=== PATIENT | male | born 1950 | race Caucasian/White ===

== ENCOUNTER 2020-01-29 12:39 | Emergency (ER) | payer OTHER, SELFPAY ==
[2020-01-29 12:48] VITALS: BP 161/86; PULSE 78; RESP 18; O2SAT 96; BMI 30.5
--- NOTE | 2020-01-29 12:51 | DI.RAD.S_ITS ---
PROCEDURE: XR RIBS RT MIN 3V W CXR 1V INDICATIONS: fall TECHNIQUE: Two views of the right ribs were acquired, along with a single view chest. COMPARISON: None. FINDINGS: Surgical changes and devices: None. Bones and chest wall: There is a minimally displaced 4th posterolateral right rib fracture. No other visible fractures. There are deformities of remote left rib fractures. No suspicious bony lesions. Overlying soft tissues appear unremarkable. Lungs and pleura: No definite pneumothorax. There is pleural tethering or trace effusion at the right lung base. Lungs demonstrate horizontal linear changes at the right lung base. Mediastinum: Mediastinal contours appear normal. Heart size is normal. IMPRESSION: 1. Mildly displaced right posterolateral 4th rib fracture without visible underlying pneumothorax. 2. There is mild scarring or atelectasis, and probable trace effusion at the right lung base. Dictated by: Leigh Ann Erickson M.D. on 01/29/2020 at 12:13 Approved by: Leigh Ann Erickson M.D. on 01/29/2020 at 12:18
--- NOTE | 2020-01-29 14:38 | DI.CT.S_ITS ---
PROCEDURE: CT CHEST W CON INDICATIONS: R rib fracture, trace effusion TECHNIQUE: After the administration of intravenous contrast, 5 mm thick sections acquired from the pulmonary apices to the posterior costophrenic angles. 1 mm axial lung, 5 mm thick coronal and sagittal reformats and 7 mm axial MIP were acquired. For radiation dose reduction, the following was used: automated exposure control, adjustment of mA and/or kV according to patient size. COMPARISON: [facility], CT, PE STUDY (CTA CHEST), 01/04/2016, 13:19. FINDINGS: Image quality: Excellent. Lungs and pleura: There is a small subpleural cystic focus in the anterolateral right lung immediately subjacent to a right 6th rib fracture which may be a tiny pneumatocele. There is scarring at the right lung base with horizontal atelectasis. No pneumothorax. There is focal spiculated scarring posteromedial at the left costophrenic sulcus. No acute air space opacities. No pleural effusions or pneumothorax. Central and peripheral airways are patent and normal in caliber. Mediastinum: Heart size is normal. No pericardial effusion. No mediastinal or hilar adenopathy by size criteria. Thoracic aorta and central pulmonary arteries are normal in size. Esophagus is normal in caliber. No hiatal hernia. Bones and chest wall: There are nondisplaced right lateral rib fractures four, five, and six. Additionally, there is a posteromedial rib fracture of right 5th rib near the costovertebral junction. A trace amount of extrapleural deep soft tissue gas is present along the anterolateral right chest between the 4th and 3rd rib arcs and extending through the intercostal musculature to the pleural surface. There is a healed deformity of the left posterior 5th and lateral 6th rib fracture. No suspicious bony lesions. No vertebral body compression fractures. No axillary or supraclavicular adenopathy by size criteria. Thyroid gland is normal . Abdomen: 1.8 cm left adrenal nodule. Visualized upper abdominal solid organs appear otherwise normal. Upper abdominal bowel loops are normal in caliber. IMPRESSION: 1. Nondisplaced right 4th through 6th rib fractures. The 5th rib is also fractured posteromedially near the costovertebral junction. 2. There is subcutaneous gas in the anterolateral right chest wall between the 3rd and 4th rib arc suggesting penetrating injury but no evidence of pneumothorax. 3. There is a tiny subpleural pneumatocele subjacent to the right 6th rib arc. 4. There is scarring and atelectatic change at the right lung base but no significant pleural effusion or hemothorax. 5. There is focal spiculated nodule at the posteromedial left lung base which is stable compared to the prior study and is likely benign scarring 6. 1.8 cm left adrenal nodule. Not imaged on the most recent prior CT scan. Further characterization with adrenal protocol CT or MRI is recommended. Dictated by: Leigh Ann Erickson M.D. on 01/29/2020 at 15:12 Approved by: Leigh Ann Erickson M.D. on 01/29/2020 at 15:30
[2020-01-29 14:58] LABS: Add Manual Diff / Slide Review NO; Basophils Absolute Auto 100 /uL (0-100); Basophils Percent Auto 1.2 % (0-2); Eosinophils Absolute Auto 100 /uL (0-450); Eosinophils Percent Auto 1.2 % (2-4); Hematocrit 48.3 % (41-53); Hemoglobin 16.4 g/dL (13.5-17.5); Lymphocytes Absolute Auto 1600 /uL (1100-4500); Lymphocytes Percent Auto 20.1 % (25-40); Mean Corpuscular Hemoglobin 32.8 PG (26-34); Mean Corpuscular Volume 96.4 fL (80-100); Monocytes Absolute Auto 700 /uL (0-900); Monocytes Percent Auto 9.1 % (3-14); Neutrophils Absolute Auto 5400 /uL (1500-7000); Neutrophils Percent Auto 68.4 % (50-75); Platelet Count 142 X10^3/uL (150-400); Red Blood Cell Count 5.01 X10^6/uL (4.5-5.9); White Blood Cell Count 7.9 X10^3/uL (4.5-11.0)
--- NOTE | 2020-01-29 15:00 | ED.FALL ---
HPI - Fall <Eliza EagleRACHAEL - Last Filed: 01/29/20 18:49> General Chief Complaint: Fall Stated Complaint: Poss broken ribs/ Rt side Time Seen by Provider: 01/29/20 14:06 Source: patient Mode of arrival: Ambulatory History of Present Illness HPI Narrative: 69yo male with a history of DM and A-flutter, presents to emergency department for falling his deck yesterday. Patient states he has had a few episodes of syncope which usually occur after he stands up quickly and takes a few steps. He has been seen by his doctor for this over the past 2 weeks, he has had blood work, EKGs, and they are currently adjusting his medications. Patient states last time this happened he was taking too much metoprolol, after the adjustment he was fine for 2 years. Patient states he takes many medications. This incident yesterday he got up from sitting, take a few steps, felt dizzy, and passed out for brace 2nd. The deck was approximately 1-1.5 feet from the ground. He landed on concrete edging and on the right side of his ribs. Patient is concerned that he may have fractured a rib. He was able to get up by himself. Patient denies hitting his head, he denies any neck pain. Patient denies any other symptoms such as chest pain, fevers, dizziness, vertigo, nausea, vomiting, diarrhea, or any other concerns. Patient denies any other injuries. Modified trauma called post-CT for multiple rib fractures. Related Data Home Medications Medication Instructions Recorded Confirmed lisinopril 5 mg PO BEDTIME #0 10/14/16 01/29/20 albuterol sulfate [Proventil HFA] 2 puff INH Q4HP PRN 01/29/20 01/29/20 allopurinol 300 mg PO DAILY 01/29/20 01/29/20 atorvastatin 20 mg PO DAILY 01/29/20 01/29/20 budesonide-formoterol 2 puff INHALATION BID 01/29/20 01/29/20 cholecalciferol (vitamin D3) 25 mcg PO DAILY 01/29/20 01/29/20 cyanocobalamin (vitamin B-12) 1,000 mcg PO DAILY 01/29/20 01/29/20 empagliflozin 10 mg PO QAM 01/29/20 01/29/20 furosemide 40 mg PO QAM 01/29/20 01/29/20 glimepiride 4 mg PO QAM 01/29/20 01/29/20 lidocaine 1 applic TOPICAL BID PRN 01/29/20 01/29/20 lidocaine 2 patch TOPICAL DAILY PRN 01/29/20 01/29/20 loratadine 10 mg PO DAILY 01/29/20 01/29/20 metoprolol succinate 50 mg PO BEDTIME 01/29/20 01/29/20 metoprolol succinate 100 mg PO QAM 01/29/20 01/29/20 omeprazole 20 mg PO DAILY 01/29/20 01/29/20 pregabalin 50 mg PO BID 01/29/20 01/29/20 rivaroxaban 20 mg PO DAILY 01/29/20 01/29/20 tiotropium bromide 2 inh INHALATION QAM 01/29/20 01/29/20 Previous Rx's Medication Instructions Recorded metformin 1,000 mg PO BID #180 06/10/12 hydrocodone-acetaminophen [[place]] 1 tab PO Q4-6H PRN #20 tab 01/29/20 Allergies Allergy/AdvReac Type Severity Reaction Status Date / Time oxycodone Allergy Hallucinati Verified 01/29/20 12:48 ng Review of Systems <RACHAEL Gutierrez - Last Filed: 01/29/20 18:49> Review of Systems Narrative: REVIEW OF SYSTEMS: GENERAL: Denies fevers. HENT: No head trauma or hearing loss. EYES: No double vision. CARDIOVASCULAR: No chest pain but reports significant. RESPIRATORY: No shortness of breath. Reports rib pain with taking a deep breath. GASTROINTESTINAL: No nausea, vomiting, diarrhea, or constipation. MUSCULOSKELETAL: Reports right-sided rib pain post trauma, see HPI. INTEGUMENTARY: No rash, lesions, or pruritus. NEURO: No memory loss, or confusion. Patient History <RACHAEL Gutierrez - Last Filed: 01/29/20 18:49> Family History Brother Diabetes mellitus Heart disease Father Cancer Mother Diabetes mellitus Sister Heart disease Social History Smoking Status: Former smoker Smoking Status: Former smoker alcohol intake frequency: 0-2 drinks per day Substance Use Type: does not use Exam <RACHAEL Gutierrez - Last Filed: 01/29/20 18:49> Initial Vital Signs Initial Vital Signs: Vital Signs Pulse Rate 78 01/29/20 12:48 Respiratory Rate 18 01/29/20 12:48 Blood Pressure 161/86 H 01/29/20 12:48 Pulse Oximetry 96 01/29/20 12:48 PHYSICAL EXAMINATION: GENERAL: Well groomed, alert, and cooperative. Answers questions promptly and appropriately. Vital signs noted. HENT: Normocephalic, atraumatic. Ear canals patent. TMs intact without mucus or erythema. Oropharynx without erythema. Tonsils are not present. EYES: Conjunctiva pink, sclera white, no periorbital swelling. No discharge. CHEST: Significant tenderness to palpation of right lateral aspect of upper ribs. CARDIOVASCULAR: S1 and S2 sounds normal. Regular rate and rhythm, no murmurs, clicks, or bruits. Patient able to ambulate without feelings of dizziness or syncope. RESPIRATORY: Normal respiratory rate, trachea midline, airway patent. No stridor, nasal flaring or accessory muscle use. Able to speak in full sentences. Lungs are clear in all rooney without wheeze, rhonchi, or crackles. MUSCULOSKELETAL: Normal gait and coordination. Equal tone and mass bilaterally. EXTREMITIES: Moves all extremities. SKIN: Warm, dry, soft, appropriate color for ethnicity. No lesions, rashes, or wounds to visualized areas. NEURO: Alert and Oriented X 3. Good coordination. No ataxia or cognitive issues. PSYCH: Appropriate affect and mood. <Brian Chau MD - Last Filed: 01/29/20 18:50> Initial Vital Signs Initial Vital Signs: Vital Signs Pulse Rate 78 01/29/20 12:48 Respiratory Rate 18 01/29/20 12:48 Blood Pressure 161/86 H 01/29/20 12:48 Pulse Oximetry 96 01/29/20 12:48 Scores <RACHAEL Gutierrez - Last Filed: 01/29/20 18:49> Nexus Score for C-Spine Focal Neurologic deficit present: No Midline spinal tenderness present: No Altered level of conciousness present: No Intoxication present: No Distracting Injury Present: No Nexus Criteria for C-spine: 0 Course <RACHAEL Gutierrez - Last Filed: 01/29/20 18:49> Course Course Narrative: 1848: I spoke with Dr. Mckeon given multiple rib fractures and subcutaneous air. Discussed patient is a candidate for discharge with pain control. Orders Ordered: ED Orders 01/29/20 12:51 XR ribs RT min 3V w CXR1V Stat 01/29/20 14:15 EKG-12 Lead Stat 01/29/20 14:38 CT chest w con Stat 01/29/20 14:41 Complete Blood Count AUTO DIFF Stat Comprehensive Metabolic Panel Stat Partial Thromboplastin Time Stat Prothrombin Time INR Stat Troponin & CK Cardiac Panel Stat Discontinued Medications Ketorolac Tromethamine (Toradol) 30 mg IM NOW ONE Stop: 01/29/20 14:16 Last Admin: 01/29/20 15:02 Dose: Not Given Documented by: TYRESE Ketorolac Tromethamine (Toradol) 30 mg IV NOW ONE Stop: 01/29/20 14:59 Last Admin: 01/29/20 15:06 Dose: 30 mg Documented by: TYRESE Morphine Sulfate (Morphine) 4 mg IV NOW ONE Stop: 01/29/20 16:35 Last Admin: 01/29/20 16:40 Dose: 4 mg Documented by: TYRESE Consultations Consultation #1: Discussed test, test results, and plan of care with Dr. Chau. Vital Signs Vital signs: Vital Signs - 8 hr 01/29/20 12:48 01/29/20 15:24 01/29/20 17:08 Pulse Rate 78 64 Pulse Rate [Orthostatic Lying] 73 Pulse Rate [Orthostatic Standing] 76 Respiratory Rate 18 18 Blood Pressure 161/86 H 148/88 H Blood Pressure [Orthostatic Lying] 153/85 H Blood Pressure [Orthostatic Sitting] 144/81 H Blood Pressure [Orthostatic Standing] 133/77 Pulse Oximetry 96 94 <Brian Chau MD - Last Filed: 01/29/20 18:50> Orders Ordered: ED Orders 01/29/20 12:51 XR ribs RT min 3V w CXR1V Stat 01/29/20 14:15 EKG-12 Lead Stat 01/29/20 14:38 CT chest w con Stat 01/29/20 14:41 Complete Blood Count AUTO DIFF Stat Comprehensive Metabolic Panel Stat Partial Thromboplastin Time Stat Prothrombin Time INR Stat Troponin & CK Cardiac Panel Stat Discontinued Medications Ketorolac Tromethamine (Toradol) 30 mg IM NOW ONE Stop: 01/29/20 14:16 Last Admin: 01/29/20 15:02 Dose: Not Given Documented by: TYRESE Ketorolac Tromethamine (Toradol) 30 mg IV NOW ONE Stop: 01/29/20 14:59 Last Admin: 01/29/20 15:06 Dose: 30 mg Documented by: TYRESE Morphine Sulfate (Morphine) 4 mg IV NOW ONE Stop: 01/29/20 16:35 Last Admin: 01/29/20 16:40 Dose: 4 mg Documented by: TYRESE Vital Signs Vital signs: Vital Signs - 8 hr 01/29/20 12:48 01/29/20 15:24 01/29/20 17:08 Pulse Rate 78 64 Pulse Rate [Orthostatic Lying] 73 Pulse Rate [Orthostatic Standing] 76 Respiratory Rate 18 18 Blood Pressure 161/86 H 148/88 H Blood Pressure [Orthostatic Lying] 153/85 H Blood Pressure [Orthostatic Sitting] 144/81 H Blood Pressure [Orthostatic Standing] 133/77 Pulse Oximetry 96 94 MDM - Fall <RACHAEL Gutierrez - Last Filed: 01/29/20 18:49> Medical Records Attestation: I reviewed the patient's medical records. Lab Data Attestation: I reviewed the patient's lab results. Result diagrams: 01/29/20 14:41 01/29/20 14:41 Labs: Lab Results 01/29/20 01/29/20 01/29/20 Range/Units 14:41 14:41 14:41 WBC 7.9 (4.5-11.0) X10^3/uL RBC 5.01 (4.5-5.9) X10^6/uL Hgb 16.4 (13.5-17.5) g/dL Hct 48.3 (41-53) % MCV 96.4 (80-100) fL MCH 32.8 (26-34) PG MCHC 34.0 (30-36) % RDW 14.0 (11.6-14.8) % Plt Count 142 L (150-400) X10^3/uL Neut % (Auto) 68.4 (50-75) % Lymph % (Auto) 20.1 L (25-40) % [place] % (Auto) 9.1 (3-14) % Eos % (Auto) 1.2 L (2-4) % Baso % (Auto) 1.2 (0-2) % Neut # (Auto) 5400 (9896-8227) /uL Lymph # (Auto) 1600 (3523-1102) /uL [place] # (Auto) 700 (0-900) /uL Eos # (Auto) 100 (0-450) /uL Baso # (Auto) 100 (0-100) /uL PT (10.1-12.7) SECONDS INR (0.9-1.3) APTT (26.4-36.2) SECONDS Sodium 136 L (137-145) mmol/L Potassium 4.5 (3.4-5.1) mmol/L Chloride 98 (98-107) mmol/L Carbon Dioxide 31 (22-32) mmol/L BUN 22 H (9-20) mg/dL Creatinine 0.90 (0.66-1.25) mg/dL Estimated GFR > 60.0 (>60) mL/min BUN/Creatinine Ratio 24.4 H (6-22) Glucose 196 H (80-110) mg/dL Calcium 10.0 (8.4-10.2) mg/dL Total Bilirubin 0.8 (0.2-1.3) mg/dL AST 38 (17-59) IU/L ALT 36 (<50) IU/L Alkaline Phosphatase 83 (38-126) U/L Total Creatine Kinase 134 Cancelled (55-170) U/L CK-MB (CK-2) 3.32 H Cancelled (<2.37) ng/mL CK-MB (CK-2) Rel Index 2.5 Cancelled (1.5-5.0) % Troponin I < 0.012 Cancelled (0.01-0.034) ng/mL Total Protein 7.5 (6.3-8.2) g/dL Albumin 4.5 (3.5-5.0) g/dL Globulin 3.0 (1.7-4.1) g/dL Albumin/Globulin Ratio 1.5 (1.0-2.8) 01/29/20 Range/Units 14:41 WBC (4.5-11.0) X10^3/uL RBC (4.5-5.9) X10^6/uL Hgb (13.5-17.5) g/dL Hct (41-53) % MCV (80-100) fL MCH (26-34) PG MCHC (30-36) % RDW (11.6-14.8) % Plt Count (150-400) X10^3/uL Neut % (Auto) (50-75) % Lymph % (Auto) (25-40) % [place] % (Auto) (3-14) % Eos % (Auto) (2-4) % Baso % (Auto) (0-2) % Neut # (Auto) (3779-8305) /uL Lymph # (Auto) (0763-4660) /uL [place] # (Auto) (0-900) /uL Eos # (Auto) (0-450) /uL Baso # (Auto) (0-100) /uL PT 17.6 H (10.1-12.7) SECONDS INR 1.5 H (0.9-1.3) APTT 40 H (26.4-36.2) SECONDS Sodium (137-145) mmol/L Potassium (3.4-5.1) mmol/L Chloride (98-107) mmol/L Carbon Dioxide (22-32) mmol/L BUN (9-20) mg/dL Creatinine (0.66-1.25) mg/dL Estimated GFR (>60) mL/min BUN/Creatinine Ratio (6-22) Glucose (80-110) mg/dL Calcium (8.4-10.2) mg/dL Total Bilirubin (0.2-1.3) mg/dL AST (17-59) IU/L ALT (<50) IU/L Alkaline Phosphatase (38-126) U/L Total Creatine Kinase (55-170) U/L CK-MB (CK-2) (<2.37) ng/mL CK-MB (CK-2) Rel Index (1.5-5.0) % Troponin I (0.01-0.034) ng/mL Total Protein (6.3-8.2) g/dL Albumin (3.5-5.0) g/dL Globulin (1.7-4.1) g/dL Albumin/Globulin Ratio (1.0-2.8) Imaging Data Chest x-ray: Radiologist's Impression: [address] [address] XRay Report Signed Patient: Nir Dick JMR#: [id number] : 1Acct:[id number] Age/Sex: 69 / MDate of Service: 01/29/20 Loc: ED Accession Number: [id number] Procedure: XR ribs RT min 3V w CXR1V Ordering Provider: Brian Chau MD PROCEDURE: XR RIBS RT MIN 3V W CXR 1V INDICATIONS: fall TECHNIQUE: Two views of the right ribs were acquired, along with a single view chest. COMPARISON: None. FINDINGS: Surgical changes and devices: None. Bones and chest wall: There is a minimally displaced 4th posterolateral right rib fracture. No other visible fractures. There are deformities of remote left rib fractures. No suspicious bony lesions. Overlying soft tissues appear unremarkable. Lungs and pleura: No definite pneumothorax. There is pleural tethering or trace effusion at the right lung base. Lungs demonstrate horizontal linear changes at the right lung base. Mediastinum: Mediastinal contours appear normal. Heart size is normal. IMPRESSION: 1. Mildly displaced right posterolateral 4th rib fracture without visible underlying pneumothorax. 2. There is mild scarring or atelectasis, and probable trace effusion at the right lung base. Dictated by: Leigh Ann Erickson M.D. on 01/29/2020 at 12:13 Approved by: Leigh Ann Erickson M.D. on 01/29/2020 at 12:18 CT scan - chest: Radiologist's Impression: [address] [address] [address] Scan Report Signed Patient: Nir Dick JMR#: [id number] : 1Acct:[id number] Age/Sex: 69 / MDate of Service: 01/29/20 Loc: ED Accession Number: [id number] Procedure: CT chest w con Ordering Provider: Eliza Eagle PROCEDURE: CT CHEST W CON INDICATIONS: R rib fracture, trace effusion TECHNIQUE: After the administration of intravenous contrast, 5 mm thick sections acquired from the pulmonary apices to the posterior costophrenic angles. 1 mm axial lung, 5 mm thick coronal and sagittal reformats and 7 mm axial MIP were acquired. For radiation dose reduction, the following was used: automated exposure control, adjustment of mA and/or kV according to patient size. COMPARISON: [facility], CT, PE STUDY (CTA CHEST), 01/04/2016, 13:19. FINDINGS: Image quality: Excellent. Lungs and pleura: There is a small subpleural cystic focus in the anterolateral right lung immediately subjacent to a right 6th rib fracture which may be a tiny pneumatocele. There is scarring at the right lung base with horizontal atelectasis. No pneumothorax. There is focal spiculated scarring posteromedial at the left costophrenic sulcus. No acute air space opacities. No pleural effusions or pneumothorax. Central and peripheral airways are patent and normal in caliber. Mediastinum: Heart size is normal. No pericardial effusion. No mediastinal or hilar adenopathy by size criteria. Thoracic aorta and central pulmonary arteries are normal in size. Esophagus is normal in caliber. No hiatal hernia. Bones and chest wall: There are nondisplaced right lateral rib fractures four, five, and six. Additionally, there is a posteromedial rib fracture of right 5th rib near the costovertebral junction. A trace amount of extrapleural deep soft tissue gas is present along the anterolateral right chest between the 4th and 3rd rib arcs and extending through the intercostal musculature to the pleural surface. There is a healed deformity of the left posterior 5th and lateral 6th rib fracture. No suspicious bony lesions. No vertebral body compression fractures. No axillary or supraclavicular adenopathy by size criteria. Thyroid gland is normal . Abdomen: 1.8 cm left adrenal nodule. Visualized upper abdominal solid organs appear otherwise normal. Upper abdominal bowel loops are normal in caliber. IMPRESSION: 1. Nondisplaced right 4th through 6th rib fractures. The 5th rib is also fractured posteromedially near the costovertebral junction. 2. There is subcutaneous gas in the anterolateral right chest wall between the 3rd and 4th rib arc suggesting penetrating injury but no evidence of pneumothorax. 3. There is a tiny subpleural pneumatocele subjacent to the right 6th rib arc. 4. There is scarring and atelectatic change at the right lung base but no significant pleural effusion or hemothorax. 5. There is focal spiculated nodule at the posteromedial left lung base which is stable compared to the prior study and is likely benign scarring 6. 1.8 cm left adrenal nodule. Not imaged on the most recent prior CT scan. Further characterization with adrenal protocol CT or MRI is recommended. Dictated by: Leigh Ann Erickson M.D. on 01/29/2020 at 15:12 Approved by: Leigh Ann Erickson M.D. on 01/29/2020 at 15:30 ECG Data Interpretation: 1422: Sinus rhythm, rate 74, UT interval 171, QTC 452. No ST elevation or ST depression. T-wave inversion noted in V3. Right bundle branch block. No RBB seen on prior EKG from 2016. EKG also viewed by Dr. Chau. MDM Narrative Medical decision making narrative: 69-year-old male presenting to the ED for right rib pain after syncopal episode. CT shows multiple rib fractures without lung injury. Dr. Mckeon was consulted given trauma and small amount of subcutaneous air. Patient's pain controlled with a small amount of morphine, states he is able to tolerate [place] without difficulty. Unsure exact cause of syncope, suspicious of medication interaction given history around event, prior history of need for medication adjustment after an episode of syncope. Less likely cardiac etiology given unremarkable EKG, negative troponin, unremarkable chest x-ray. Lack of other symptoms such as chest pain or shortness of breath. Patient able to ambulate over the past 24 hours without difficulty or repeat dizziness. Less likely infection given lack of suspicious etiology and normal white blood cell count, patient is hemodynamically stable. Patient denies hitting head, denies neck pain, less suspicion for traumatic brain injury. Patient neurological intact. Patient was given very strict return precautions new or worsening symptoms. He agreed to plan of care verbalized understanding. <Brian Chau MD - Last Filed: 01/29/20 18:50> Lab Data Labs: Lab Results 01/29/20 01/29/20 01/29/20 Range/Units 14:41 14:41 14:41 WBC 7.9 (4.5-11.0) X10^3/uL RBC 5.01 (4.5-5.9) X10^6/uL Hgb 16.4 (13.5-17.5) g/dL Hct 48.3 (41-53) % MCV 96.4 (80-100) fL MCH 32.8 (26-34) PG MCHC 34.0 (30-36) % RDW 14.0 (11.6-14.8) % Plt Count 142 L (150-400) X10^3/uL Neut % (Auto) 68.4 (50-75) % Lymph % (Auto) 20.1 L (25-40) % [place] % (Auto) 9.1 (3-14) % Eos % (Auto) 1.2 L (2-4) % Baso % (Auto) 1.2 (0-2) % Neut # (Auto) 5400 (9316-4447) /uL Lymph # (Auto) 1600 (1027-7027) /uL [place] # (Auto) 700 (0-900) /uL Eos # (Auto) 100 (0-450) /uL Baso # (Auto) 100 (0-100) /uL PT (10.1-12.7) SECONDS INR (0.9-1.3) APTT (26.4-36.2) SECONDS Sodium 136 L (137-145) mmol/L Potassium 4.5 (3.4-5.1) mmol/L Chloride 98 (98-107) mmol/L Carbon Dioxide 31 (22-32) mmol/L BUN 22 H (9-20) mg/dL Creatinine 0.90 (0.66-1.25) mg/dL Estimated GFR > 60.0 (>60) mL/min BUN/Creatinine Ratio 24.4 H (6-22) Glucose 196 H (80-110) mg/dL Calcium 10.0 (8.4-10.2) mg/dL Total Bilirubin 0.8 (0.2-1.3) mg/dL AST 38 (17-59) IU/L ALT 36 (<50) IU/L Alkaline Phosphatase 83 (38-126) U/L Total Creatine Kinase 134 Cancelled (55-170) U/L CK-MB (CK-2) 3.32 H Cancelled (<2.37) ng/mL CK-MB (CK-2) Rel Index 2.5 Cancelled (1.5-5.0) % Troponin I < 0.012 Cancelled (0.01-0.034) ng/mL Total Protein 7.5 (6.3-8.2) g/dL Albumin 4.5 (3.5-5.0) g/dL Globulin 3.0 (1.7-4.1) g/dL Albumin/Globulin Ratio 1.5 (1.0-2.8) 01/29/20 Range/Units 14:41 WBC (4.5-11.0) X10^3/uL RBC (4.5-5.9) X10^6/uL Hgb (13.5-17.5) g/dL Hct (41-53) % MCV (80-100) fL MCH (26-34) PG MCHC (30-36) % RDW (11.6-14.8) % Plt Count (150-400) X10^3/uL Neut % (Auto) (50-75) % Lymph % (Auto) (25-40) % [place] % (Auto) (3-14) % Eos % (Auto) (2-4) % Baso % (Auto) (0-2) % Neut # (Auto) (6141-0593) /uL Lymph # (Auto) (3375-6750) /uL [place] # (Auto) (0-900) /uL Eos # (Auto) (0-450) /uL Baso # (Auto) (0-100) /uL PT 17.6 H (10.1-12.7) SECONDS INR 1.5 H (0.9-1.3) APTT 40 H (26.4-36.2) SECONDS Sodium (137-145) mmol/L Potassium (3.4-5.1) mmol/L Chloride (98-107) mmol/L Carbon Dioxide (22-32) mmol/L BUN (9-20) mg/dL Creatinine (0.66-1.25) mg/dL Estimated GFR (>60) mL/min BUN/Creatinine Ratio (6-22) Glucose (80-110) mg/dL Calcium (8.4-10.2) mg/dL Total Bilirubin (0.2-1.3) mg/dL AST (17-59) IU/L ALT (<50) IU/L Alkaline Phosphatase (38-126) U/L Total Creatine Kinase (55-170) U/L CK-MB (CK-2) (<2.37) ng/mL CK-MB (CK-2) Rel Index (1.5-5.0) % Troponin I (0.01-0.034) ng/mL Total Protein (6.3-8.2) g/dL Albumin (3.5-5.0) g/dL Globulin (1.7-4.1) g/dL Albumin/Globulin Ratio (1.0-2.8) Discharge Plan Departure Patient Disposition: Home Clinical Impression: Multiple fractures of ribs Qualifiers: Encounter type: initial encounter Fracture type: closed Laterality: right Qualified Code(s): S22.41XA - Multiple fractures of ribs, right side, initial encounter for closed fracture Discharge Date/Time: 01/29/20 17:26 Instructions: DI for Syncope in Adults (Fainting), DI for Rib Fracture, How to Prevent Falls Activity Restrictions/Additional Instructions: Thank you for entrusting me with your care today. As discussed, you have multiple rib fractures on your right side. Your laboratory work and EKG are non-remarkable. Please continue to work with your doctor about adjusting your medications to prevent syncope. You have been prescribed a narcotic medication, this medication can make you drowsy. Do not drive while using this medication or perform activities that require mental alertness. These medications can also make you constipated, please use [id number] docusate sodium as needed for constipation. Your prescription has been sent to [facility] in [place], they close at 6pm. Return emergency department for any new or worsening symptoms such as severe pain, dizziness, further syncope, or any other concerns. Prescriptions: New hydrocodone-acetaminophen [[place]] 5-325 mg tablet 1 tab PO Q4-6H PRN (Reason: pain) Qty: 20 RF: 0 No Action metformin 1,000 MG tablet 1,000 mg PO BID Qty: 180 RF: 3 lisinopril 5 MG tablet 5 mg PO BEDTIME Qty: 0 RF: 0 furosemide 40 mg Tablet 40 mg PO QAM RF: 0 atorvastatin 20 mg Tablet 20 mg PO DAILY RF: 0 lidocaine 5 % Cream 1 applic TOPICAL BID PRN (Reason: Pain (Scale Score 1-3)) RF: 0 metoprolol succinate 100 mg Tablet Extended Release 24 Hr 100 mg PO QAM RF: 0 metoprolol succinate 100 mg Tablet Extended Release 24 Hr 50 mg PO BEDTIME RF: 0 glimepiride 4 mg Tablet 4 mg PO QAM RF: 0 lidocaine 5 % Adhesive Patch,Medicated 2 patch TOPICAL DAILY PRN (Reason: Pain (Scale Score 1-3)) RF: 0 omeprazole 20 mg Capsule,Delayed Release(Dr/Ec) 20 mg PO DAILY RF: 0 allopurinol 300 mg Tablet 300 mg PO DAILY RF: 0 pregabalin 50 mg Capsule 50 mg PO BID RF: 0 cholecalciferol (vitamin D3) 25 mcg (1,000 unit) Tablet 25 mcg PO DAILY RF: 0 budesonide-formoterol 160-4.5 mcg/actuation Hfa Aerosol Inhaler 2 puff INHALATION BID RF: 0 loratadine 10 mg Capsule 10 mg PO DAILY RF: 0 rivaroxaban 20 mg Tablet 20 mg PO DAILY RF: 0 tiotropium bromide 2.5 mcg/actuation Mist 2 inh INHALATION QAM RF: 0 empagliflozin 10 mg Tablet 10 mg PO QAM RF: 0 cyanocobalamin (vitamin B-12) 1,000 mcg Capsule 1,000 mcg PO DAILY RF: 0 albuterol sulfate [Proventil HFA] 90 MCG/PUFF HFA aerosol inhaler 2 puff INH Q4HP PRN (Reason: Shortness Of Breath) RF: 0 Referrals: Adrienne Gaviria [Primary Care Provider] -
[2020-01-29] MEDS: KETOROLAC 60 MG/2 ML VIAL 30 MG IV (15:06)
[2020-01-29 15:08] LABS: Alanine Aminotransferase 36 IU/L (<50); Albumin 4.5 g/dL (3.5-5.0); Albumin Globulin Ratio 1.5 (1.0-2.8); Alkaline Phosphatase 83 U/L (38-126); Aspartate Aminotransferase 38 IU/L (17-59); BUN Creatinine Ratio 24.4 (6-22); Bilirubin Total 0.8 mg/dL (0.2-1.3); Blood Urea Nitrogen 22 mg/dL (9-20); Carbon Dioxide 31 mmol/L (22-32); Chloride 98 mmol/L (98-107); Creatine Kinase 134 U/L (55-170); Estimated Glomerular Filt Rate > 60.0 mL/min (>60); Glucose 196 mg/dL (80-110); HEMOLYSIS < 15 (0-50); Potassium 4.5 mmol/L (3.4-5.1); Sodium 136 mmol/L (137-145); Total Protein 7.5 g/dL (6.3-8.2)
[2020-01-29 15:19] LABS: Troponin I < 0.012 ng/mL (0.01-0.034)
[2020-01-29 15:23] LABS: CKMB % Relative Index 2.5 % (1.5-5.0); Creatine Kinase MB 3.32 ng/mL (<2.37)
[2020-01-29 15:24] VITALS: BP 133/77; BP 144/81; BP 153/85; PULSE 73; PULSE 76
[2020-01-29] MEDS: ONDANSETRON 4 MG/2 ML INJ (16:40)
[2020-01-29] MEDS: MORPHINE 4 MG/ML INJ IV (16:40)
[2020-01-29 16:46] LABS: INR 1.5 (0.9-1.3); Prothrombin Time 17.6 SECONDS (10.1-12.7)
[2020-01-29 16:49] LABS: PTT Partial Thromboplastin Tim 40 SECONDS (26.4-36.2)
[2020-01-29 17:08] VITALS: BP 148/88; PULSE 64; RESP 18; O2SAT 94
== END 2020-01-29 17:26 | disposition home or self-care (01) ==
PROVIDERS: Emergency Provider Nurse Practitioner; PCP Internal Medicine
DX: S22.41XA Multiple fractures of ribs, right side, initial encounter for closed fracture (principal); R55 Syncope and collapse; W19.XXXA Unspecified fall, initial encounter
CPT/HCPCS: 36415; 71101; 71260; 80053; 82550; 82553; 84484; 85025; 85610; 85730; 93005; 96374; 96375; 99284; 99285; J1885; J2270; J2405; Q9967

== ENCOUNTER 2020-02-01 14:35 | Observation (INO) | payer OTHER, SELFPAY ==
[2020-02-01] VITALS (10 sets, daily range): BP systolic 118–156; BP diastolic 64–80; PULSE 73–97; RESP 12–22; TEMP 36.6–36.9; O2SAT 91–95; BMI 30.5
--- NOTE | 2020-02-01 15:20 | DI.RAD.S_ITS ---
PROCEDURE: XR RIBS RT MIN 3V W CXR 1V INDICATIONS: hx rib fracture 4-6, worsening pain and SOB TECHNIQUE: 2 views of the right ribs were acquired, along with a single view chest. COMPARISON: [facility], CR, XR RIBS RT MIN 3V W CXR 1V, 01/29/2020, 12:43. FINDINGS: Surgical changes and devices: None. Bones and chest wall: Mildly displaced right posterolateral 4th rib fracture demonstrates slightly increased displacement. No suspicious bony lesions. Overlying soft tissues appear unremarkable. Lungs and pleura: No pleural effusions or pneumothorax. Lungs appear clear. Mediastinum: Mediastinal contours appear normal. Heart size is normal. IMPRESSION: Slightly increased displacement of right 4th rib fracture. Dictated by: Henrique Anthony M.D. on 02/01/2020 at 15:46 Approved by: Henrique Anthony M.D. on 02/01/2020 at 15:48
[2020-02-01] MEDS: ONDANSETRON 4 MG/2 ML INJ IV (15:42)
[2020-02-01] MEDS: MORPHINE 4 MG/ML INJ IV (15:42)
[2020-02-01 16:09] LABS: BUN Creatinine Ratio 26.8 (6-22); Blood Urea Nitrogen 26 mg/dL (9-20); Calcium 9.7 mg/dL (8.4-10.2); Carbon Dioxide 29 mmol/L (22-32); Chloride 94 mmol/L (98-107); Estimated Glomerular Filt Rate > 60.0 mL/min (>60); Glucose 167 mg/dL (80-110); HEMOLYSIS < 15 (0-50); Potassium 4.3 mmol/L (3.4-5.1); Sodium 133 mmol/L (137-145)
[2020-02-01 16:10] LABS: Add Manual Diff / Slide Review NO; Basophils Absolute Auto 0 /uL (0-100); Basophils Percent Auto 0.3 % (0-2); Eosinophils Absolute Auto 0 /uL (0-450); Eosinophils Percent Auto 0.4 % (2-4); Hematocrit 46.9 % (41-53); Hemoglobin 16.2 g/dL (13.5-17.5); Lymphocytes Absolute Auto 500 /uL (1100-4500); Lymphocytes Percent Auto 5.5 % (25-40); Mean Corpuscular HGB Conc 34.5 % (30-36); Mean Corpuscular Hemoglobin 33.2 PG (26-34); Mean Corpuscular Volume 96.3 fL (80-100); Monocytes Absolute Auto 500 /uL (0-900); Monocytes Percent Auto 5.4 % (3-14); Neutrophils Absolute Auto 8600 /uL (1500-7000); Neutrophils Percent Auto 88.4 % (50-75); Platelet Count 143 X10^3/uL (150-400); Red Blood Cell Count 4.87 X10^6/uL (4.5-5.9); Red Cell Distribution Width 13.7 % (11.6-14.8); White Blood Cell Count 9.7 X10^3/uL (4.5-11.0)
--- NOTE | 2020-02-01 16:26 | ED_ITS ---
HPI - Back Pain/Injury <MACARIO CarvalhoP - Last Filed: 02/01/20 17:41> General Chief Complaint: Trauma Stated Complaint: fell off roof 6 days ago Time Seen by Provider: 02/01/20 15:08 Source: patient Mode of arrival: EMS Limitations: no limitations History of Present Illness HPI Narrative: This is a 69-year-old male, former smoker, who was diagnosed with right side rib fracture from -6 on 01/23/20 presents to ED with increasing pain that is not managed with Cat[place] at home. Patient reports he had syncopal episodes and fell off the deck which was approximately 1-1.5 feet from the gr ound and sustained rib fractures and at denies hitting his head at that time. Patient reports chronic medical condition as DVT, hypertension, diabetes, SVT and currently takes rivaroxaban daily. Patient reports can take deep breaths due to pain and also is very tender to light palpation. Reports moist cough but difficult time expectorate it due to pain. Patient reports feeling hot and sweaty but denies chills. When patient was visited 6 days ago cardiac workup was done negative findings. Related Data Home Medications Medication Instructions Recorded Confirmed lisinopril 5 mg PO BEDTIME #0 10/14/16 02/01/20 albuterol sulfate [Proventil HFA] 2 puff INH Q4HP PRN 01/29/20 02/01/20 allopurinol 300 mg PO DAILY 01/29/20 02/01/20 atorvastatin 20 mg PO DAILY 01/29/20 02/01/20 budesonide-formoterol 2 puff INHALATION BID 01/29/20 02/01/20 cholecalciferol (vitamin D3) 25 mcg PO DAILY 01/29/20 02/01/20 cyanocobalamin (vitamin B-12) 1,000 mcg PO DAILY 01/29/20 02/01/20 empagliflozin 10 mg PO QAM 01/29/20 02/01/20 furosemide 40 mg PO QAM 01/29/20 02/01/20 glimepiride 4 mg PO QAM 01/29/20 02/01/20 lidocaine 1 applic TOPICAL BID PRN 01/29/20 02/01/20 lidocaine 2 patch TOPICAL DAILY PRN 01/29/20 02/01/20 loratadine 10 mg PO DAILY 01/29/20 02/01/20 metoprolol succinate 50 mg PO BEDTIME 01/29/20 02/01/20 metoprolol succinate 100 mg PO QAM 01/29/20 02/01/20 omeprazole 20 mg PO DAILY 01/29/20 02/01/20 pregabalin 25 mg PO BID 01/29/20 02/02/20 rivaroxaban 20 mg PO DAILY 01/29/20 02/01/20 tiotropium bromide 2 inh INHALATION QAM 01/29/20 02/01/20 Previous Rx's Medication Instructions Recorded metformin 1,000 mg PO BID #180 06/10/12 guaifenesin [Mucus Relief ER] 1,200 mg PO BID #60 tab 02/02/20 oxycodone 5 - 10 mg PO Q4H PRN #60 tab 02/02/20 Allergies Allergy/AdvReac Type Severity Reaction Status Date / Time oxycodone Allergy Hallucinati Verified 02/01/20 14:43 ng Review of Systems <RACHAEL Carvalho - Last Filed: 02/01/20 17:41> Review of Systems Narrative: General: Denies fever, chills, fatigue, malaise, (+) sweats. HEENT: Denies sinus pain, ear pain, sore throat, difficulty swallowing, dizziness. Respiratory: HPI Cardiovascular: Denies chest pain, palpitations, orthopnea, edema, (+) chest wall pain. Gastrointestinal: Denies nausea, vomiting, abdominal pain, diarrhea, constipation, melena. : Denies dysuria, frequency, incontinence, hematuria, urinary retention. Musculoskeletal: See HPI Skin: Denies rash, skin lesions, or other. Neurologic: Denies weakness, headache, numbness, change in speech, confusion, seizures, incoordination. Psychiatric: No concerning psychosocial issues. 12-point review of systems is negative except for those stated above. Patient History <RACHAEL Carvalho - Last Filed: 02/01/20 17:41> Medical History (Updated 02/02/20 @ 00:56 by RACHAEL Munoz) Atrial fibrillation (Acute) Cancer of skin of right ear (Acute) COPD (chronic obstructive pulmonary disease) (Acute) Hyperlipemia (Acute) Hypertension (Acute) Neuropathy of both feet (Acute) Type 2 diabetes mellitus (Acute) Urinary hesitancy (Acute) Surgical History (Updated 02/02/20 @ 01:06 by RACHAEL Munoz) History of pneumothorax (Acute) Family History (Updated 02/02/20 @ 01:07 by RACHAEL Munoz) Brother Diabetes mellitus Heart disease Father Cancer Colon cancer Mother Diabetes mellitus Sister Heart disease PML (progressive multifocal leukoencephalopathy) Social History household members: spouse Smoking Status: Former smoker Smoking Status: Former smoker alcohol intake frequency: 0-2 drinks per day Substance Use Type: does not use Exam <Pritesh RACHAEL Kasper - Last Filed: 02/01/20 17:41> Narrative Exam Narrative: GEN: Alert, oriented x 3, well nourished, and in moderate distress from pain. Head: Normal cephalic, atraumatic. No scalp or temporal tenderness, palpable mass or rash. EYES: Pupils are equal, round, and reactive to light and accommodation. Extraocular muscles are intact bilaterally. There is no subconjunctival hemorrhage, exudate and sclera non-icteric. ENT: Hearing grossly intact. Nose without bleeding, purulent discharge or deviation. Mucous membrane moist, no mucosal lesion. Throat without erythema, tonsillar hypertrophy or exudate. Uvula in midline, airway patent. Neck: Trachea in midline. No JVD, non-tender without lymphadenopathy. No masses or thyroid megaly. Supple, non-tender and no meningeal signs. CARDIAC: Normal regular rate and rhythm without murmurs, gallops, or rubs. No chest wall tenderness. No peripheral edema, cyanosis or pallor. Capillary refill is less than 2 seconds. RESPIRATORY: Lungs are decreased to auscultate bilaterally. Occasional moist cough, no wheezes, rales, or rhonchi. No stridor, respiratory distress but shallow breathing. ABD: Abdomen soft, nontender and non-distended. No guarding or rebound tenderness to palpate. Bowel sounds are normal in all 4 quadrants. There is no palpable masses or organomegaly. EXT: Full painless ROM of all extremities with no loss of sensation, strength, effusion or edema. SKIN: Warm, sweaty, normal color for patient. No erythema, lesions or rash over visible areas. Patient has lidocaine patch right lateral ribs. BACK: Nontender without deformity or crepitance. No flank tenderness. NEUROLOGICAL: Alert and oriented to place, time and person. Sensation and motor function intact bilaterally. No facial droops, dysphasia. PSYCHIATRIC: Good judgement and reason, without hallucinations, abnormal affect or abnormal behaviors during the examination. Patient is not suicidal. Initial Vital Signs Initial Vital Signs: Vital Signs Temperature 98.4 F 02/01/20 14:43 Pulse Rate 97 H 02/01/20 14:43 Respiratory Rate 12 02/01/20 14:43 Blood Pressure 156/80 H 02/01/20 14:43 Pulse Oximetry 92 02/01/20 14:43 <Shad Florentino MD - Last Filed: 02/07/20 07:29> Initial Vital Signs Initial Vital Signs: Vital Signs Temperature 98.4 F 02/01/20 14:43 Pulse Rate 97 H 02/01/20 14:43 Respiratory Rate 12 02/01/20 14:43 Blood Pressure 156/80 H 02/01/20 14:43 Pulse Oximetry 92 02/01/20 14:43 Scores <RACHAEL Carvalho - Last Filed: 02/01/20 17:41> GCS Meet coma scale eye opening: Spontaneous Meet coma scale verbal response: Orientated Meet coma scale motor response: Obey commands Meet coma scale total score: 15 qSOFA Altered Mental Status (GCS <15): No Respiratory rate greater than/equal to 22: No Systolic blood pressure less than or equal to 100: No qSOFA Total: 0 0-1 Not High Risk 1-3 High risk Course <RACHAEL Carvalho - Last Filed: 02/01/20 17:41> Orders Ordered: Discontinued Medications Acetaminophen (Tylenol) 650 mg PO Q6HR PRN PRN Reason: Fever/Mild Pain (1-3) Acetaminophen (Tylenol) 650 mg PO Q4HR [facility] Last Admin: 02/02/20 11:52 Dose: 650 mg Documented by: Admin: 02/02/20 07:56 Dose: 650 mg Documented by: Admin: 02/02/20 05:06 Dose: 650 mg Documented by: Admin: 02/02/20 00:52 Dose: 650 mg Documented by: JERMAN Albuterol/Ipratropium (Duoneb) 3 ml INH RTQ6HR PRN PRN Reason: Shortness Of Breath Albuterol/Ipratropium (Duoneb) 3 ml INH RTQ4HR PRN PRN Reason: Shortness Of Breath Atorvastatin Calcium (Lipitor) 20 mg PO DAILY [facility] Last Admin: 02/02/20 07:57 Dose: 20 mg Documented by: DIANE Dextrose (D50w) 25 gm IV PRN PRN PRN Reason: Hypoglycemia Dextrose (D50w) 25 gm IV PRN PRN PRN Reason: Hypoglycemia Docusate Sodium (Colace) 100 mg PO BID [facility] Last Admin: 02/02/20 07:56 Dose: 100 mg Documented by: Admin: 02/01/20 22:22 Dose: 100 mg Documented by: SHIV Guaifenesin (Mucinex) 1,200 mg PO BID [facility] Last Admin: 02/02/20 07:57 Dose: 1,200 mg Documented by: Admin: 02/02/20 00:55 Dose: 1,200 mg Documented by: AHARSTA Sodium Chloride (Normal Saline 0.9%) 1,000 mls @ 100 mls/hr IV CONT [facility] Last Admin: 02/01/20 22:25 Dose: 100 mls/hr Documented by: Infusion: 02/01/20 22:25 Dose: 100 mls/hr Documented by: Admin: 02/01/20 16:43 Dose: 100 mls/hr Documented by: RICHARDO Sodium Chloride (Normal Saline 0.9%) 1,000 mls @ 100 mls/hr IV CONT [facility] Last Infusion: 02/02/20 13:22 Dose: 0 mls/hr Documented by: Admin: 02/02/20 08:09 Dose: 100 mls/hr Documented by: Admin: 02/01/20 22:26 Dose: Not Given Documented by: SHIV Insulin Aspart (Novolog Flexpen) 0 unit SUBCUT [facility]; Protocol Insulin Aspart (Novolog Flexpen) 0 unit SUBCUT [facility]; Protocol Last Admin: 02/02/20 13:27 Dose: Not Given Documented by: Admin: 02/02/20 07:44 Dose: Not Given Documented by: DIANE Insulin Glargine (Lantus Solostar (Pen)) 10 unit SUBCUT 0800 [facility] Last Admin: 02/02/20 13:22 Dose: Not Given Documented by: DIANE Lisinopril (Zestril) 5 mg PO BEDTIME [facility] Last Admin: 02/01/20 22:22 Dose: 5 mg Documented by: SHIV Metoprolol Succinate (Toprol Xl) 50 mg PO BEDTIME [facility] Last Admin: 02/01/20 22:22 Dose: 50 mg Documented by: SHIV Metoprolol Succinate (Toprol Xl) 100 mg PO DAILY [facility] Last Admin: 02/02/20 01:56 Dose: Not Given Documented by: JERMAN Metoprolol Succinate (Toprol Xl) 100 mg PO DAILY [facility] Last Admin: 02/02/20 07:57 Dose: 100 mg Documented by: DIANE Morphine Sulfate (Morphine) 4 mg IV NOW ONE Stop: 02/01/20 15:21 Last Admin: 02/01/20 15:42 Dose: 4 mg Documented by: KAMALJIT Morphine Sulfate (Morphine) 2 mg IV Q2HR PRN PRN Reason: Pain, Moderate (4-6) Last Admin: 02/01/20 19:45 Dose: 2 mg Documented by: Admin: 02/01/20 16:43 Dose: 2 mg Documented by: KAMALJIT Morphine Sulfate (Morphine) 2 mg IV Q4HR PRN PRN Reason: Pain, Moderate (4-6) Last Admin: 02/01/20 23:36 Dose: 2 mg Documented by: JERMAN Morphine Sulfate (Morphine) 2 mg IV Q3H PRN PRN Reason: Pain, Moderate (4-6) Last Admin: 02/02/20 12:04 Dose: 2 mg Documented by: Admin: 02/02/20 07:46 Dose: 2 mg Documented by: Admin: 02/02/20 03:13 Dose: 2 mg Documented by: JERMAN Naloxone HCl (Narcan) 0.2 mg IV Q2MIN PRN PRN Reason: Opiate Reversal Ondansetron HCl (Zofran) 4 mg IV NOW ONE Stop: 02/01/20 15:21 Last Admin: 02/01/20 15:42 Dose: 4 mg Documented by: KAMALJIT Ondansetron HCl (Zofran) 4 mg IV Q8HR PRN PRN Reason: Nausea And Vomiting Pregabalin (Lyrica) 50 mg PO BID [facility] Last Admin: 02/01/20 22:22 Dose: 50 mg Documented by: SHIV Pregabalin (Lyrica) 25 mg PO BID [facility] Pregabalin (Lyrica) 25 mg PO BID [facility] Pregabalin (Lyrica) 25 mg PO BID [facility] Last Admin: 02/02/20 13:28 Dose: Not Given Documented by: DIANE Rivaroxaban (Xarelto) 20 mg PO DAILY [facility] Rivaroxaban (Xarelto) 20 mg PO DAILY [facility] Tiotropium Boyds (Spiriva) 18 mcg INH DAILY [facility] Last Admin: 02/02/20 08:02 Dose: Not Given Documented by: DIANE Vital Signs Vital signs: Vital Signs - 8 hr 02/01/20 14:43 02/01/20 15:07 02/01/20 15:40 Temperature 98.4 F Pulse Rate 97 H 87 89 Respiratory Rate 12 Blood Pressure 156/80 H Pulse Oximetry 92 95 94 02/01/20 16:00 Temperature Pulse Rate 82 Respiratory Rate Blood Pressure Pulse Oximetry 91 <Shad Florentino MD - Last Filed: 02/07/20 07:29> Orders Ordered: Discontinued Medications Acetaminophen (Tylenol) 650 mg PO Q6HR PRN PRN Reason: Fever/Mild Pain (1-3) Acetaminophen (Tylenol) 650 mg PO Q4HR [facility] Last Admin: 02/02/20 11:52 Dose: 650 mg Documented by: Admin: 02/02/20 07:56 Dose: 650 mg Documented by: Admin: 02/02/20 05:06 Dose: 650 mg Documented by: Admin: 02/02/20 00:52 Dose: 650 mg Documented by: JERMAN Albuterol/Ipratropium (Duoneb) 3 ml INH RTQ6HR PRN PRN Reason: Shortness Of Breath Albuterol/Ipratropium (Duoneb) 3 ml INH RTQ4HR PRN PRN Reason: Shortness Of Breath Atorvastatin Calcium (Lipitor) 20 mg PO DAILY [facility] Last Admin: 02/02/20 07:57 Dose: 20 mg Documented by: DIANE Dextrose (D50w) 25 gm IV PRN PRN PRN Reason: Hypoglycemia Dextrose (D50w) 25 gm IV PRN PRN PRN Reason: Hypoglycemia Docusate Sodium (Colace) 100 mg PO BID [facility] Last Admin: 02/02/20 07:56 Dose: 100 mg Documented by: Admin: 02/01/20 22:22 Dose: 100 mg Documented by: SHIV Guaifenesin (Mucinex) 1,200 mg PO BID [facility] Last Admin: 02/02/20 07:57 Dose: 1,200 mg Documented by: Admin: 02/02/20 00:55 Dose: 1,200 mg Documented by: AHARSTA Sodium Chloride (Normal Saline 0.9%) 1,000 mls @ 100 mls/hr IV CONT [facility] Last Admin: 02/01/20 22:25 Dose: 100 mls/hr Documented by: Infusion: 02/01/20 22:25 Dose: 100 mls/hr Documented by: Admin: 02/01/20 16:43 Dose: 100 mls/hr Documented by: BHARATIWANSO Sodium Chloride (Normal Saline 0.9%) 1,000 mls @ 100 mls/hr IV CONT [facility] Last Infusion: 02/02/20 13:22 Dose: 0 mls/hr Documented by: Admin: 02/02/20 08:09 Dose: 100 mls/hr Documented by: Admin: 02/01/20 22:26 Dose: Not Given Documented by: SHIV Insulin Aspart (Novolog Flexpen) 0 unit SUBCUT [facility]; Protocol Insulin Aspart (Novolog Flexpen) 0 unit SUBCUT [facility]; Protocol Last Admin: 02/02/20 13:27 Dose: Not Given Documented by: Admin: 02/02/20 07:44 Dose: Not Given Documented by: DIANE Insulin Glargine (Lantus Solostar (Pen)) 10 unit SUBCUT 0800 [facility] Last Admin: 02/02/20 13:22 Dose: Not Given Documented by: DIANE Lisinopril (Zestril) 5 mg PO BEDTIME [facility] Last Admin: 02/01/20 22:22 Dose: 5 mg Documented by: SHIV Metoprolol Succinate (Toprol Xl) 50 mg PO BEDTIME [facility] Last Admin: 02/01/20 22:22 Dose: 50 mg Documented by: SHIV Metoprolol Succinate (Toprol Xl) 100 mg PO DAILY [facility] Last Admin: 02/02/20 01:56 Dose: Not Given Documented by: JERMAN Metoprolol Succinate (Toprol Xl) 100 mg PO DAILY [facility] Last Admin: 02/02/20 07:57 Dose: 100 mg Documented by: DIANE Morphine Sulfate (Morphine) 4 mg IV NOW ONE Stop: 02/01/20 15:21 Last Admin: 02/01/20 15:42 Dose: 4 mg Documented by: KAMALJIT Morphine Sulfate (Morphine) 2 mg IV Q2HR PRN PRN Reason: Pain, Moderate (4-6) Last Admin: 02/01/20 19:45 Dose: 2 mg Documented by: Admin: 02/01/20 16:43 Dose: 2 mg Documented by: KAMALJIT Morphine Sulfate (Morphine) 2 mg IV Q4HR PRN PRN Reason: Pain, Moderate (4-6) Last Admin: 02/01/20 23:36 Dose: 2 mg Documented by: JERMAN Morphine Sulfate (Morphine) 2 mg IV Q3H PRN PRN Reason: Pain, Moderate (4-6) Last Admin: 02/02/20 12:04 Dose: 2 mg Documented by: Admin: 02/02/20 07:46 Dose: 2 mg Documented by: Admin: 02/02/20 03:13 Dose: 2 mg Documented by: JERMAN Naloxone HCl (Narcan) 0.2 mg IV Q2MIN PRN PRN Reason: Opiate Reversal Ondansetron HCl (Zofran) 4 mg IV NOW ONE Stop: 02/01/20 15:21 Last Admin: 02/01/20 15:42 Dose: 4 mg Documented by: KAMALJIT Ondansetron HCl (Zofran) 4 mg IV Q8HR PRN PRN Reason: Nausea And Vomiting Pregabalin (Lyrica) 50 mg PO BID [facility] Last Admin: 02/01/20 22:22 Dose: 50 mg Documented by: SHIV Pregabalin (Lyrica) 25 mg PO BID [facility] Pregabalin (Lyrica) 25 mg PO BID [facility] Pregabalin (Lyrica) 25 mg PO BID [facility] Last Admin: 02/02/20 13:28 Dose: Not Given Documented by: DIANE Rivaroxaban (Xarelto) 20 mg PO DAILY [facility] Rivaroxaban (Xarelto) 20 mg PO DAILY [facility] Tiotropium Boyds (Spiriva) 18 mcg INH DAILY [facility] Last Admin: 02/02/20 08:02 Dose: Not Given Documented by: ACHESS Vital Signs Vital signs: Vital Signs - 8 hr 02/01/20 14:43 02/01/20 15:07 02/01/20 15:40 Temperature 98.4 F Pulse Rate 97 H 87 89 Respiratory Rate 12 Blood Pressure 156/80 H Pulse Oximetry 92 95 94 02/01/20 16:00 Temperature Pulse Rate 82 Respiratory Rate Blood Pressure Pulse Oximetry 91 MDM - Back Pain/Injury <Pritesh RACHAEL Kasper - Last Filed: 02/01/20 17:41> Differential Diagnosis Differential diagnosis: Likely other (Rib fracture, pneumothorax, pneumonia) Medical Records Attestation: I reviewed the patient's medical records. Lab Data Attestation: I reviewed the patient's lab results. Result diagrams: 02/02/20 05:09 02/02/20 05:09 Labs: Lab Results 02/01/20 02/01/20 02/01/20 Range/Units 14:50 14:50 14:50 WBC 9.7 (4.5-11.0) X10^3/uL RBC 4.87 (4.5-5.9) X10^6/uL Hgb 16.2 (13.5-17.5) g/dL Hct 46.9 (41-53) % MCV 96.3 (80-100) fL MCH 33.2 (26-34) PG MCHC 34.5 (30-36) % RDW 13.7 (11.6-14.8) % Plt Count 143 L (150-400) X10^3/uL Neut % (Auto) 88.4 H (50-75) % Lymph % (Auto) 5.5 L (25-40) % Addison % (Auto) 5.4 (3-14) % Eos % (Auto) 0.4 L (2-4) % Baso % (Auto) 0.3 (0-2) % Neut # (Auto) 8600 H (7693-4393) /uL Lymph # (Auto) 500 L (7075-5598) /uL Addison # (Auto) 500 (0-900) /uL Eos # (Auto) 0 (0-450) /uL Baso # (Auto) 0 (0-100) /uL PT 16.5 H (10.1-12.7) SECONDS INR 1.4 H (0.9-1.3) APTT 35 D (26.4-36.2) SECONDS Sodium 133 L (137-145) mmol/L Potassium 4.3 (3.4-5.1) mmol/L Chloride 94 L (98-107) mmol/L Carbon Dioxide 29 (22-32) mmol/L BUN 26 H (9-20) mg/dL Creatinine 0.97 (0.66-1.25) mg/dL Estimated GFR > 60.0 (>60) mL/min BUN/Creatinine Ratio 26.8 H (6-22) Glucose 167 H (80-110) mg/dL Calcium 9.7 (8.4-10.2) mg/dL COVID-19 PCR (Negative) 02/01/20 Range/Units 16:02 WBC (4.5-11.0) X10^3/uL RBC (4.5-5.9) X10^6/uL Hgb (13.5-17.5) g/dL Hct (41-53) % MCV (80-100) fL MCH (26-34) PG MCHC (30-36) % RDW (11.6-14.8) % Plt Count (150-400) X10^3/uL Neut % (Auto) (50-75) % Lymph % (Auto) (25-40) % Addison % (Auto) (3-14) % Eos % (Auto) (2-4) % Baso % (Auto) (0-2) % Neut # (Auto) (2266-8316) /uL Lymph # (Auto) (4645-2176) /uL Addison # (Auto) (0-900) /uL Eos # (Auto) (0-450) /uL Baso # (Auto) (0-100) /uL PT (10.1-12.7) SECONDS INR (0.9-1.3) APTT (26.4-36.2) SECONDS Sodium (137-145) mmol/L Potassium (3.4-5.1) mmol/L Chloride (98-107) mmol/L Carbon Dioxide (22-32) mmol/L BUN (9-20) mg/dL Creatinine (0.66-1.25) mg/dL Estimated GFR (>60) mL/min BUN/Creatinine Ratio (6-22) Glucose (80-110) mg/dL Calcium (8.4-10.2) mg/dL COVID-19 PCR Negative (Negative) Imaging Data XR-RIB and chest RT: Radiologist's Impression: [address] [address] XRay Report Signed Patient: Nir Dick JMR#: [id number] : [id number]:[id number] Age/Sex: 69 / MDate of Service: 02/01/20 Loc: ED Accession Number: [id number] Procedure: XR ribs RT min 3V w CXR1V Ordering Provider: Pritesh Kasper PROCEDURE: XR RIBS RT MIN 3V W CXR 1V INDICATIONS: hx rib fracture 4-6, worsening pain and SOB TECHNIQUE: 2 views of the right ribs were acquired, along with a single view chest. [facility]V, [facility], 12:43. FINDINGS: Surgical changes and devices: None. Bones and chest wall: Mildly displaced right posterolateral 4th rib fracture demonstrates slightly increased displacement. No suspicious bony lesions. Overlying soft tissues appear unremarkable. Lungs and pleura: No pleural effusions or pneumothorax. Lungs appear clear. Mediastinum: Mediastinal contours appear normal. Heart size is normal. IMPRESSION: Slightly increased displacement of right 4th rib fracture. Dictated by: Henrqiue Anthony M.D. on 02/01/2020 at 15:46 Approved by: Henrique Anthony M.D. on 02/01/2020 at 15:48 MDM Narrative Medical decision making narrative: This is a 69-year-old gentleman who presents to ED with [facility] with right rib pain. Patient had syncopal episode 6 days ago and fell off the back and sustain multiple rib fracture on right-sided from rib 4 through [address] when he was in [facility] Emergency room. P atient's pain has not been well managed with [facility] that he was discharged to home. He has shallow breath and noticed hypoxia and his on 2 L nasal cannula to keep O2 sat >/92%. Lungs sounds are decreased bilaterally. Patient reports has been using IS machine at home. Patient has difficult time coughing due to significant pain. Rib and chest x-ray has repeated today to rule out pneumothorax, worsening rib fracture, or pneumonia. The shows mildly displaced right postero lateral 4th rib fracture which has been slightly increased in displacement. There is no pleural effusion or pneumothorax or pneumonia appreciated per x-ray test. Patient was medicated with morphine and Zofran for pain management with moderate efficacy. Also patient is slightly dehydrated as evidenced by increased BUN of 26, BUN creatinine ratio of 26.8 with normal creatinine of 0.97. Patient started on gentle IV hydration due to history of heart failure. Dr. Gayle consulted for admission under observation for pain control and hypoxia. Respiratory therapist consulted for IS to prevent pneumonia. <Shad Florentino MD - Last Filed: 02/07/20 07:29> Lab Data Labs: Lab Results 02/01/20 02/01/20 02/01/20 Range/Units 14:50 14:50 14:50 WBC 9.7 (4.5-11.0) X10^3/uL RBC 4.87 (4.5-5.9) X10^6/uL Hgb 16.2 (13.5-17.5) g/dL Hct 46.9 (41-53) % MCV 96.3 (80-100) fL MCH 33.2 (26-34) PG MCHC 34.5 (30-36) % RDW 13.7 (11.6-14.8) % Plt Count 143 L (150-400) X10^3/uL Neut % (Auto) 88.4 H (50-75) % Lymph % (Auto) 5.5 L (25-40) % Addison % (Auto) 5.4 (3-14) % Eos % (Auto) 0.4 L (2-4) % Baso % (Auto) 0.3 (0-2) % Neut # (Auto) 8600 H (7798-9544) /uL Lymph # (Auto) 500 L (0653-9428) /uL Addison # (Auto) 500 (0-900) /uL Eos # (Auto) 0 (0-450) /uL Baso # (Auto) 0 (0-100) /uL PT 16.5 H (10.1-12.7) SECONDS INR 1.4 H (0.9-1.3) APTT 35 D (26.4-36.2) SECONDS Sodium 133 L (137-145) mmol/L Potassium 4.3 (3.4-5.1) mmol/L Chloride 94 L (98-107) mmol/L Carbon Dioxide 29 (22-32) mmol/L BUN 26 H (9-20) mg/dL Creatinine 0.97 (0.66-1.25) mg/dL Estimated GFR > 60.0 (>60) mL/min BUN/Creatinine Ratio 26.8 H (6-22) Glucose 167 H (80-110) mg/dL Calcium 9.7 (8.4-10.2) mg/dL COVID-19 PCR (Negative) 02/01/20 Range/Units 16:02 WBC (4.5-11.0) X10^3/uL RBC (4.5-5.9) X10^6/uL Hgb (13.5-17.5) g/dL Hct (41-53) % MCV (80-100) fL MCH (26-34) PG MCHC (30-36) % RDW (11.6-14.8) % Plt Count (150-400) X10^3/uL Neut % (Auto) (50-75) % Lymph % (Auto) (25-40) % Addison % (Auto) (3-14) % Eos % (Auto) (2-4) % Baso % (Auto) (0-2) % Neut # (Auto) (7385-8931) /uL Lymph # (Auto) (3984-5471) /uL Addison # (Auto) (0-900) /uL Eos # (Auto) (0-450) /uL Baso # (Auto) (0-100) /uL PT (10.1-12.7) SECONDS INR (0.9-1.3) APTT (26.4-36.2) SECONDS Sodium (137-145) mmol/L Potassium (3.4-5.1) mmol/L Chloride (98-107) mmol/L Carbon Dioxide (22-32) mmol/L BUN (9-20) mg/dL Creatinine (0.66-1.25) mg/dL Estimated GFR (>60) mL/min BUN/Creatinine Ratio (6-22) Glucose (80-110) mg/dL Calcium (8.4-10.2) mg/dL COVID-19 PCR Negative (Negative) Discharge Plan Departure Patient Disposition: Admitted As Inpatient Clinical Impression: Hypoxia Closed rib fracture Qualifiers: Encounter type: subsequent encounter Rib fracture type: multiple ribs Lat erality: right Fracture healing: with delayed healing Qualified Code(s): S22.41XG - Multiple fractures of ribs, right side, subsequent encounter for fracture with delayed healing Discharge Date/Time: 02/01/20 17:30 Instructions: Constipation, DI for Rib Fracture, How to Prevent Falls, DI for Prescription Opioid Use, Oxycodone Referrals: Adrienne Gaviria [Primary Care Provider] - (Please call your PCP to ensure you have a follow up appointment) Admit Date/Time: 02/01/20 16:24 Admit Provider: Nancy Gayle <Shad Florentino MD - Last Filed: 02/07/20 07:29> Cosign ED Attending Cosignature Attestation: I was immediately available in the department for consultation. This documentation has been reviewed and I agree with assessment and plan. Supervised by Shad Florentino MD
[2020-02-01] MEDS: MORPHINE 2 MG/ML INJ IV ×3 (16:43→23:36)
[2020-02-01] MEDS: SODIUM CHLORIDE 0.9% 1,000 ML 100 ML IV ×2 (16:43→22:25)
[2020-02-01 17:24] LABS: COVID19 -Nasal RAPID Negative (Negative)
[2020-02-01 17:59] LABS: INR 1.4 (0.9-1.3); Prothrombin Time 16.5 SECONDS (10.1-12.7)
[2020-02-01 18:01] LABS: PTT Partial Thromboplastin Tim 35 SECONDS (26.4-36.2)
[2020-02-01] MEDS: lisinopriL 5 MG TABLET PO (22:22)
[2020-02-01] MEDS: PREGABALIN 50 MG CAPSULE PO (22:22)
[2020-02-01] MEDS: DOCUSATE 100 MG CAPSULE PO (22:22)
[2020-02-01] MEDS: METOPROLOL ER 50 MG TABLET PO (22:22)
[2020-02-02] VITALS (7 sets, daily range): BP systolic 97–127; BP diastolic 55–58; PULSE 63–64; RESP 16–20; TEMP 36.1–36.5; O2SAT 88–95
--- NOTE | 2020-02-02 00:44 | P.HP_ITS ---
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 He landed on concrete edging and on the right side of his ribs. Patient states he has had a few episodes of syncope which usually occur after he stands up quickly, takes a few steps and falls. Patient reports can take deep breaths due to pain and also is very tender to light palpation. Reports moist cough but difficult time expectorate it due to pain. Patient reports feeling hot and sweaty but denies chills. He has had no bowel movement for several days due to taking oxycodone He has been seen by his PCP for this over the past 2 weeks, he has had blood work, EKGs, and they are currently adjusting his medications. Patient states last time this happened he was taking too much metoprolol, after the adjustment he was fine for 2 years. Patient states he takes many medications. In the emergency department they treated his pain with IV morphine and started fluids on him. Today's chest x-ray indicates a slightly displaced right 4th rib fracture. Patient's temperature is 98.0?, blood pressure 118/71, heart rate 73, respiratory rate 22, oxygen saturation 95% on 2 L nasal cannula, he weighs 99.3 kg with a BMI of 30.5. WBC 9.7, RBC 4.87, hemoglobin 16.2, hematocrit 46.9, platelet count a 143, INR is 1.4, sodium 133, chloride 94, CO2 29, BUN 26, creatinine 0.97, GFR is greater than 60, glucose 167, calcium 9.7, COVID-19 is negative. Patient History Medical History Atrial fibrillation (Acute) Cancer of skin of right ear (Acute) COPD (chronic obstructive pulmonary disease) (Acute) Hyperlipemia (Acute) Hypertension (Acute) Neuropathy of both feet (Acute) Type 2 diabetes mellitus (Acute) Urinary hesitancy (Acute) Surgical History (Updated 02/02/20 @ 01:06 by RACHAEL Munoz) History of pneumothorax (Acute) Family & Social History Family History (Updated 02/02/20 @ 01:07 by RACHAEL Munoz) Brother Diabetes mellitus Heart disease Father Cancer Colon cancer Mother Diabetes mellitus Sister Heart disease PML (progressive multifocal leukoencephalopathy) Social History: household members spouse Prior Living Arrangements House Safety & Behavioral: Feels Safe in Current Yes Environment Been Physically Hurt or No Threatened By a Person Suicidal Ideation Description None Suicide Plan Description No Plan Tobacco & Substance use: Smoking Status Former smoker quit 5 years ago alcohol intake frequency 0-2 drinks per day Substance Use Type does not use Meds Home Medications and Allergies Home Medications Medication Instructions Recorded Confirmed Type metformin 1,000 mg PO BID #180 06/10/12 02/01/20 Rx lisinopril 5 mg PO BEDTIME #0 10/14/16 02/01/20 History albuterol sulfate [Proventil HFA] 2 puff INH Q4HP PRN 01/29/20 02/01/20 History allopurinol 300 mg PO DAILY 01/29/20 02/01/20 History atorvastatin 20 mg PO DAILY 01/29/20 02/01/20 History budesonide-formoterol 2 puff INHALATION BID 01/29/20 02/01/20 History cholecalciferol (vitamin D3) 25 mcg PO DAILY 01/29/20 02/01/20 History cyanocobalamin (vitamin B-12) 1,000 mcg PO DAILY 01/29/20 02/01/20 History empagliflozin 10 mg PO QAM 01/29/20 02/01/20 History furosemide 40 mg PO QAM 01/29/20 02/01/20 History glimepiride 4 mg PO QAM 01/29/20 02/01/20 History hydrocodone-acetaminophen [[place]] 1 tab PO Q4-6H PRN #20 tab 01/29/20 02/01/20 Rx lidocaine 1 applic TOPICAL BID PRN 01/29/20 02/01/20 History lidocaine 2 patch TOPICAL DAILY PRN 01/29/20 02/01/20 History loratadine 10 mg PO DAILY 01/29/20 02/01/20 History metoprolol succinate 50 mg PO BEDTIME 01/29/20 02/01/20 History metoprolol succinate 100 mg PO QAM 01/29/20 02/01/20 History omeprazole 20 mg PO DAILY 01/29/20 02/01/20 History pregabalin 50 mg PO BID 01/29/20 02/01/20 History rivaroxaban 20 mg PO DAILY 01/29/20 02/01/20 History tiotropium bromide 2 inh INHALATION QAM 01/29/20 02/01/20 History Allergies Allergy/AdvReac Type Severity Reaction Status Date / Time oxycodone Allergy Hallucinati Verified 02/01/20 14:43 ng Review of Systems Review of Systems ROS: Yes All systems reviewed with the patient and are negative except as otherwise documented Exam Vital Signs (past 8 hours): - 02/01/20 16:48 02/01/20 17:00 02/01/20 20:34 Temperature 97.9 F Pulse Rate 82 77 81 Respiratory Rate 20 Blood Pressure 122/64 119/67 141/79 H Pulse Oximetry 91 91 95 02/01/20 22:22 02/01/20 23:47 Temperature 98 F Pulse Rate 81 73 Respiratory Rate 22 Blood Pressure 141/79 H 118/71 Pulse Oximetry 95 Oxygen Delivery Method Nasal Cannula Oxygen Flow Rate 2 Narrative Exam Narrative: Gen: Alert, oriented, overweight 69 y.o. male, appears older than stated age HEENT: normocephalic, atraumatic, conjunctiva clear, sclera non-icteric, oral mucosa pink and moist Neck: supple, full ROM, no JVD, trachea is midline Resp: Poor excursion due to pain, non-labored breathing CV: RRR, no murmur or rubs Abd: soft, non-tender, normoactive BTs Skin: no lesions or rashes, dry and intact Neuro: Alert and oriented X 4 w/no focal deficits. Speech clear and coherent. Extremities: moves all 4 extremities, is ambulatory, negative Salvador?s sign Psyche: normal mood and affect Objective Labs Result Diagrams: 02/01/20 14:50 02/01/20 14:50 Labs: Laboratory Results - last 24 hr 02/01/20 02/01/20 02/01/20 14:50 14:50 14:50 WBC 9.7 RBC 4.87 Hgb 16.2 Hct 46.9 MCV 96.3 MCH 33.2 MCHC 34.5 RDW 13.7 Plt Count 143 L Neut % (Auto) 88.4 H Lymph % (Auto) 5.5 L [place] % (Auto) 5.4 Eos % (Auto) 0.4 L Baso % (Auto) 0.3 Neut # (Auto) 8600 H Lymph # (Auto) 500 L [place] # (Auto) 500 Eos # (Auto) 0 Baso # (Auto) 0 PT 16.5 H INR 1.4 H APTT 35 D Sodium 133 L Potassium 4.3 Chloride 94 L Carbon Dioxide 29 BUN 26 H Creatinine 0.97 Estimated GFR > 60.0 BUN/Creatinine Ratio 26.8 H Glucose 167 H Calcium 9.7 COVID-19 PCR 02/01/20 16:02 WBC RBC Hgb Hct MCV MCH MCHC RDW Plt Count Neut % (Auto) Lymph % (Auto) [place] % (Auto) Eos % (Auto) Baso % (Auto) Neut # (Auto) Lymph # (Auto) [place] # (Auto) Eos # (Auto) Baso # (Auto) PT INR APTT Sodium Potassium Chloride Carbon Dioxide BUN Creatinine Estimated GFR BUN/Creatinine Ratio Glucose Calcium COVID-19 PCR Negative Assessment & Plan Assessment & Plan narrative: Nir Dick will be admitted for pain management associated with a right sided rib fracture. Right sided rib fracture 01/23/2020, not improving and present on admission -Incentive spirometry to prevent development of pneumonia -Pain management with scheduled tylenol and prn morphine -He is written for his home dose for a lidocaine patch, remove X 12 hours Falls, acute, present on admission -We will need to obtain records for a recent cardiac workup COPD, chronic, present on admission -Persistent coughing is causing pain -Albuterol/Ipatriprium nebs q 4 hours -mucinex 1200 mg po bid for cough supression -Continue home dose of tiotroprium bromide 18 mcg inhaled once daily Atrial fibrillation, chronic and present on admission -cardiac telemetry -rhythm and rate controlled with home dose of metoprolol succinate 100 mg hs daily, 50 mg po at hs -Continue home dose of rivaroxaban 20 mg po daily Diabetes type 2 with an A1c of 9.3 in September 2019, chronic, present on admission -Holding oral antidiabetics -medium dose correctional insulin scale Essential Hypertension, chronic -Continue home dose of lisinopril 5 mg po daily HLD, chronic -continue home dose of atorvastatin 20 mg po daily Consults: none Patient is admitted under inpatient status with expected length of stay greater than 2 midnights due to severity of presenting symptoms, risk of adverse event, and complexity of treatment plan. FEN: NS at 100 ml/hour, carb controlled diet, BMP and magnesium in the am. VTE prophylaxis: Bilateral SCDs Dispo: Eventual discharge to home Code Status: Full Code as discussed with patient COVID-19 COVID-19 status: Negative Result date/Date tested (Pos, Neg/Pending): 02/01/20 Quality VTE Deep Vein Thrombosis/Pulmonary Embolism Present on Admission: No
[2020-02-02] MEDS: ACETAMINOPHEN 325 MG TABLET 650 MG PO ×4 (00:52→11:52)
[2020-02-02] MEDS: guaiFENesin ER 600 MG TAB 1200 MG PO ×2 (00:55→07:57)
--- NOTE | 2020-02-02 01:29 | PC.NURSE ---
Addendum entered by Toña Sarmiento R.N. 02/02/20 06:29: Weight noted to be up by 2.8kg this morning, but admission weight recorded on white board in room shows admit weight to be 102kg but was documented as 99.337kg on admission assessment. When up earlier this shift bed was rezeroed. So, appears weight change is actually only 0.2kg Addendum entered by Toña Sarmiento R.N. 02/02/20 05:10: Had to be awakened for lab/scheduled Tylenol and was sleeping quite soundly. States pain is not bad but rates severity as 610 Addendum entered by Toña Sarmiento R.N. 02/02/20 03:15: CBG = 88 so given a snack. Complains of 8/10 right rib pain so medicated with IV Morphine. States cough improved and is breathing easier. BP low at 97/55 but is asymptomatic. Original Note: Patient initially seen and assessed at 2351. Is alert and oriented. Breath sounds very diminished throughout. Patient having pain with any movement, cough, inspiration so was medicated with Morphine and pain management discussed with Harris CANO. Is on oxygen at 2L/min per NC with sat of 95%. SOB with exertion and difficulty clearing secretions related to pain. HRR; telemetry reading was SR w/BBB. Denies nausea. BT hypoactive; abdomen is soft. Having urinary hesitancy with urination which he states is new but denies dysuria, frequency or urgency. Is able to get out of bed with 1 assist and stands at bedside to use urinal. Has chronic numbness in bilateral feet. Fall risk score is high and bed alarm is activated. Bilateral calf SCD's applied.
[2020-02-02] MEDS: MORPHINE 2 MG/ML INJ IV ×3 (03:13→12:04)
[2020-02-02 05:53] LABS: Add Manual Diff / Slide Review NO; Basophils Absolute Auto 0 /uL (0-100); Basophils Percent Auto 0.3 % (0-2); Eosinophils Absolute Auto 100 /uL (0-450); Eosinophils Percent Auto 1.3 % (2-4); Hematocrit 40.2 % (41-53); Hemoglobin 13.7 g/dL (13.5-17.5); Lymphocytes Absolute Auto 1200 /uL (1100-4500); Lymphocytes Percent Auto 13.9 % (25-40); Mean Corpuscular Hemoglobin 33.1 PG (26-34); Mean Corpuscular Volume 97.1 fL (80-100); Monocytes Absolute Auto 600 /uL (0-900); Monocytes Percent Auto 6.4 % (3-14); Neutrophils Absolute Auto 7000 /uL (1500-7000); Neutrophils Percent Auto 78.1 % (50-75); Platelet Count 111 X10^3/uL (150-400); Red Blood Cell Count 4.14 X10^6/uL (4.5-5.9); White Blood Cell Count 8.9 X10^3/uL (4.5-11.0)
[2020-02-02 06:01] LABS: Blood Urea Nitrogen 21 mg/dL (9-20); Calcium 8.7 mg/dL (8.4-10.2); Carbon Dioxide 30 mmol/L (22-32); Chloride 98 mmol/L (98-107); Cholesterol 101 mg/dL (140-199); Estimated Glomerular Filt Rate > 60.0 mL/min (>60); Glucose 122 mg/dL (80-110); HDL Cholesterol 40 mg/dL (40-60); HEMOLYSIS < 15 (0-50); LDL Cholesterol Calculated 45 mg/dL (<100); Potassium 4.1 mmol/L (3.4-5.1); Sodium 133 mmol/L (137-145); Triglycerides 78 mg/dL (35-150)
[2020-02-02 06:05] LABS: Hemoglobin A1C% w Est Avg Glu 7.4 % (4.0-6.0)
[2020-02-02 06:56] LABS: Thyroid Stimulating Hormone 1.64 uIU/mL (0.47-4.68)
[2020-02-02] MEDS: DOCUSATE 100 MG CAPSULE PO (07:56)
[2020-02-02] MEDS: METOPROLOL ER 50 MG TABLET 100 MG PO (07:57)
[2020-02-02] MEDS: ATORVASTATIN 20 MG TABLET PO (07:57)
[2020-02-02] MEDS: SODIUM CHLORIDE 0.9% 1,000 ML 100 ML IV (08:09)
[2020-02-02] MEDS: INSULIN GLARGINE 100 UNIT/ML 3ML PEN 10 UNIT SUBCUT (11:58)
--- NOTE | 2020-02-02 12:33 | DIET.PN ---
Dietary Progress Note Assessment: 69y M admitted after falling off roof and suffering broken rib referred to nutrition for uncontrolled DM2. Pt taking 1,000mg Metformin BID, glimepiride 4mg QAM, his A1c in September 2019 was 9.3 and today is 7.4 indicating good glycemic control. Pt had no questions or concerns regarding DM2 and is committed to keeping A1c <8.0. Reiterated importance of regular physical activity and carbohydrate controlled diet in addition to DM medications for adequate control of condition. HT: 180.3cm WT: 102.2kg BMI: 31.4 Labs: A1c 7.4 Diet Order: CCD
--- NOTE | 2020-02-02 13:17 | P.DS_ITS ---
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 He landed on concrete edging and on the right side of his ribs. Patient states he has had a few episodes of syncope which usually occur after he stands up quickly, takes a few steps and falls. Patient reports can take deep breaths due to pain and also is very tender to light palpation. Reports moist cough but difficult time expectorate it due to pain. Patient reports feeling hot and sweaty but denies chills. He has had no bowel movement for several days due to taking oxycodone He has been seen by his PCP for this over the past 2 weeks, he has had blood work, EKGs, and they are currently adjusting his medications. Patient states last time this happened he was taking too much metoprolol, after the adjustment he was fine for 2 years. Patient states he takes many medications. In the emergency department they treated his pain with IV morphine and started fluids on him. Today's chest x-ray indicates a slightly displaced right 4th rib fracture. Patient's temperature is 98.0?, blood pressure 118/71, heart rate 73, respiratory rate 22, oxygen saturation 95% on 2 L nasal cannula, he weighs 99.3 kg with a BMI of 30.5. WBC 9.7, RBC 4.87, hemoglobin 16.2, hematocrit 46.9, platelet count a 143, INR is 1.4, sodium 133, chloride 94, CO2 29, BUN 26, creatinine 0.97, GFR is greater than 60, glucose 167, calcium 9.7, COVID-19 is negative. Discharge Providers Provider Date of admission: 02/01/20 16:24 Discharge Date: 02/02/20 Primary care physician: Adrienne Gaviria Consults: 02/02/20 09:21 Consult to Dietitian, Adult Routine Comment: Reason For Exam: poorly controlled diabetes Discharge provider: Mo Ziegler MD Summary Hospital Course Discharge Diagnosis: 1. Right displaced 4th, 5th and 6th rib fractures 2. Mild hypoxia secondary to rib fractures without respiratory failure Hospital Course: Patient was admitted to observation primarily due to un controlled pain with taking hydrocodone for recently diagnosed rib fractures at outside hospital. There is no evidence of pneumothorax or pneumonia. He was mildly transiently hypoxic to sat of 88% secondary to splinting. At this time patient is stable and can be discharged on oral pain medication. After prescribed oxycodone for him. Reviewed potential side effects. Also prescribed guaifenesin. [facility]. Status at Discharge Cognitive/behavioral status at discharge: oriented Functional status at discharge: independent ambulation Overall status at discharge: patient is progressing back to baseline Exam Vital Signs (past 8 hours): - 02/02/20 07:30 02/02/20 07:55 02/02/20 08:03 Temperature 97.7 F Pulse Rate 64 Respiratory Rate 16 Blood Pressure 127/55 L Pulse Oximetry 95 88 L 95 02/02/20 11:53 02/02/20 12:28 Temperature 97.0 F L Pulse Rate 64 Respiratory Rate 20 Blood Pressure 99/58 L Pulse Oximetry 93 94 Oxygen Delivery Method Nasal Cannula Oxygen Flow Rate 1 Objective Labs Result Diagrams: 02/02/20 05:09 02/02/20 05:09 Labs: Laboratory Results - last 24 hr 02/01/20 02/01/20 02/01/20 14:50 14:50 14:50 WBC 9.7 RBC 4.87 Hgb 16.2 Hct 46.9 MCV 96.3 MCH 33.2 MCHC 34.5 RDW 13.7 Plt Count 143 L Neut % (Auto) 88.4 H Lymph % (Auto) 5.5 L [place] % (Auto) 5.4 Eos % (Auto) 0.4 L Baso % (Auto) 0.3 Neut # (Auto) 8600 H Lymph # (Auto) 500 L [place] # (Auto) 500 Eos # (Auto) 0 Baso # (Auto) 0 PT 16.5 H INR 1.4 H APTT 35 D Sodium 133 L Potassium 4.3 Chloride 94 L Carbon Dioxide 29 BUN 26 H Creatinine 0.97 Estimated GFR > 60.0 BUN/Creatinine Ratio 26.8 H Glucose 167 H Hemoglobin A1c Calcium 9.7 Magnesium Triglycerides Cholesterol LDL Cholesterol, Calc HDL Cholesterol TSH COVID-19 PCR 02/01/20 02/02/20 02/02/20 16:02 05:09 05:09 WBC 8.9 RBC 4.14 L Hgb 13.7 Hct 40.2 L MCV 97.1 MCH 33.1 MCHC 34.0 RDW 14.0 Plt Count 111 L Neut % (Auto) 78.1 H Lymph % (Auto) 13.9 L [place] % (Auto) 6.4 Eos % (Auto) 1.3 L Baso % (Auto) 0.3 Neut # (Auto) 7000 Lymph # (Auto) 1200 [place] # (Auto) 600 Eos # (Auto) 100 Baso # (Auto) 0 PT INR APTT Sodium 133 L Potassium 4.1 Chloride 98 Carbon Dioxide 30 BUN 21 H Creatinine 1.00 Estimated GFR > 60.0 BUN/Creatinine Ratio 21.0 Glucose 122 H Hemoglobin A1c Calcium 8.7 Magnesium 2.0 Triglycerides 78 Cholesterol 101 L LDL Cholesterol, Calc 45 HDL Cholesterol 40 TSH COVID-19 PCR Negative 02/02/20 02/02/20 05:09 05:09 WBC RBC Hgb Hct MCV MCH MCHC RDW Plt Count Neut % (Auto) Lymph % (Auto) [place] % (Auto) Eos % (Auto) Baso % (Auto) Neut # (Auto) Lymph # (Auto) [place] # (Auto) Eos # (Auto) Baso # (Auto) PT INR APTT Sodium Potassium Chloride Carbon Dioxide BUN Creatinine Estimated GFR BUN/Creatinine Ratio Glucose Hemoglobin A1c 7.4 H Calcium Magnesium Triglycerides Cholesterol LDL Cholesterol, Calc HDL Cholesterol TSH 1.64 COVID-19 PCR Discharge Plan Discharge Plan Patient Disposition: Home Discharge orders & Medications Prescriptions: New guaifenesin [Mucus Relief ER] 600 mg Tablet Extended Release 12hr 1,200 mg PO BID Qty: 60 RF: 0 oxycodone 5 mg tablet 5 - 10 mg PO Q4H PRN (Reason: pain) Qty: 60 RF: 0 Continued metformin 1,000 MG tablet 1,000 mg PO BID Qty: 180 RF: 3 lisinopril 5 MG tablet 5 mg PO BEDTIME Qty: 0 RF: 0 furosemide 40 mg Tablet 40 mg PO QAM RF: 0 atorvastatin 20 mg Tablet 20 mg PO DAILY RF: 0 lidocaine 5 % Cream 1 applic TOPICAL BID PRN (Reason: Pain (Scale Score 1-3)) RF: 0 metoprolol succinate 100 mg Tablet Extended Release 24 Hr 100 mg PO QAM RF: 0 metoprolol succinate 100 mg Tablet Extended Release 24 Hr 50 mg PO BEDTIME RF: 0 glimepiride 4 mg Tablet 4 mg PO QAM RF: 0 lidocaine 5 % Adhesive Patch,Medicated 2 patch TOPICAL DAILY PRN (Reason: Pain (Scale Score 1-3)) RF: 0 omeprazole 20 mg Capsule,Delayed Release(Dr/Ec) 20 mg PO DAILY RF: 0 allopurinol 300 mg Tablet 300 mg PO DAILY RF: 0 pregabalin 50 mg Capsule 25 mg PO BID RF: 0 cholecalciferol (vitamin D3) 25 mcg (1,000 unit) Tablet 25 mcg PO DAILY RF: 0 budesonide-formoterol 160-4.5 mcg/actuation Hfa Aerosol Inhaler 2 puff INHALATION BID RF: 0 loratadine 10 mg Capsule 10 mg PO DAILY RF: 0 rivaroxaban 20 mg Tablet 20 mg PO DAILY RF: 0 tiotropium bromide 2.5 mcg/actuation Mist 2 inh INHALATION QAM RF: 0 empagliflozin 10 mg Tablet 10 mg PO QAM RF: 0 cyanocobalamin (vitamin B-12) 1,000 mcg Capsule 1,000 mcg PO DAILY RF: 0 albuterol sulfate [Proventil HFA] 90 MCG/PUFF HFA aerosol inhaler 2 puff INH Q4HP PRN (Reason: Shortness Of Breath) RF: 0 Discontinued hydrocodone-acetaminophen [[place]] 5-325 mg tablet 1 tab PO Q4-6H PRN (Reason: pain) Qty: 20 RF: 0 Follow up/Referrals: Adrienne Gaviria [Primary Care Provider] - Diet/Activity/Treatments Diet: Diet as Tolerated Visit Report/Discharge Packet Visit Report Forms: Patient Portal/API, Stroke Signs & Symptoms Discharge Data Primary Care Provider: Adrienne Gaviria Attending Provider: Nancy Gayle Admit Date/Time: 02/01/20 16:24 Quality VTE Deep Vein Thrombosis/Pulmonary Embolism Present on Admission: No
--- NOTE | 2020-02-02 13:47 | CM.DANOTE ---
Discharge Planning/Care Management DCP: assessment: case received, EMR reviewed and met this morning with pt during Team Bedside Rounds. Pt was found sitting up in bedside chair, hand on injured rib area. Pt confirmed he is is fully independent at baseline. He was on o2 during rounds. Does not use at home. Dr. Ziegler stated he would be back later to see pt in more detail. He did not anticipate PT eval would be needed. see now that a d/c to home order is in. Pt has been ok'd to d/c on oral pain medication and will be following up with his PCP. No supplemental o2 needed. Home today with to transport. Advanced directive, confirm from FAMILY Start: 02/01/20 18:25 Freq: Q24H Status: Active Protocol: Document 02/01/20 18:25 AK (Rec: 02/01/20 18:25 [facility] [id number]) Advance Directive, confirm on record Time 18:25 Person contacted Raiza Copy received No CM Discharge Assessment Start: 02/02/20 13:46 Freq: Status: Active Protocol: Document 02/02/20 13:46 ITV (Rec: 02/02/20 13:47 ITV [id number]) Discharge Planning Assessment Advance Directives? Yes History Provided By Patient,Medical Record Prior Living Arrangements House Household Members spouse Independent with ADL's Yes Is patient alert and oriented? Yes Review Status In Process
--- NOTE | 2020-02-02 15:51 | PC.NURSE ---
Day Shift- Pt states right rib/flank pain 6-7/10 aching, with intermittent sharpness and tenderness. pain management plan discussed. PRN Morphine 2mg IV given at 0745 and 1205 with good effect. Denies nausea. States has not been eating well over last week, no BM for several days, pt denies feeling constipated or abd bloated. Denies nausea. Dr. Ziegler made aware at 1100. Pt states he normally takes his Xarelto at dinner time and his lantus at 2300. Therefore these meds not given today. Pt aware to take them at his normal dosing tonight at home. Pt's going to [facility] to have prescriptions for Oxycodone and Mucinex filled. Encouraged stool softeners at home, pt states he does not have any, pt's will buy some at [facility]. Discharge summary packet reviewed with pt, no further voiced concerns. Pt left unit at 1507 via wheelchair with [employer] escort. Pt's present outside hospital and will drive pt home.
== END 2020-02-02 15:07 | disposition home or self-care (01) ==
LOC: ED 16:25 → AC 16:26
PROVIDERS: Nurse Practitioner Family; Admitting Provider Internal Medicine; Emergency Provider Nurse Practitioner Family; PCP Internal Medicine; Referring Provider Nurse Practitioner Family; Visit Provider Internal Medicine
DX: R07.81 Pleurodynia (principal); S22.41XD Multiple fractures of ribs, right side, subsequent encounter for fracture with routine healing; I48.91 Unspecified atrial fibrillation; J44.9 Chronic obstructive pulmonary disease, unspecified; E78.5 Hyperlipidemia, unspecified; I10 Essential (primary) hypertension; E11.9 Type 2 diabetes mellitus without complications; Z79.84 Long term (current) use of oral hypoglycemic drugs; Z86.718 Personal history of other venous thrombosis and embolism; Z79.01 Long term (current) use of anticoagulants; Z11.59 Encounter for screening for other viral diseases; W10.8XXS Fall (on) (from) other stairs and steps, sequela
CPT/HCPCS: 36415; 36592; 71101; 80048; 80061; 82962; 83036; 83735; 84443; 85025; 85610; 85730; 87635; 96361; 96374; 96375; 96376; 99284; 99285; G0378; J2270; J2405

== ENCOUNTER → 2020-05-14 09:53 | Outpatient (CLI) | payer OTHER, SELFPAY ==
[2020-02-01 18:15] VITALS: BMI 30.5
[2020-05-14 11:45] LABS: COVID19 -Nasal RAPID Negative (Negative)
== END ==
PROVIDERS: PCP Internal Medicine; Referring Provider Student in an Organized Health Care Education/Training Program; Visit Provider Physician Assistant
DX: Z11.59 Encounter for screening for other viral diseases (principal)
CPT/HCPCS: 87635

== ENCOUNTER 2020-05-16 09:21 | Day surgery (SDC) | payer OTHER, SELFPAY ==
[2020-02-01 18:15] VITALS: BMI 30.5
--- NOTE | 2020-05-16 | PATH_ITS ---
[facility] Accession Number: [id number] . 01 Material submitted: . colon - SIGMOID COLON POLYP . 01 Clinical history: . SDC . 02 Diagnosis: Sigmoid Colon, Polyp: Hyperplastic polyp. MRV 05/21/2020 1210 Local . 02 Electronically signed: . Saul Peterson MD, PhD, Pathologist NPI- [id number] . 01 Gross description: . SIGMOID COLON POLYP: Received in formalin is 1 fragment(s) of tapia, soft tissue measuring 0.5 x 0.3 x 0.3 cm submitted entirely in 1 cassette(s) /QBJ 05/17/2020 0459 Local . 02 Pathologist provided ICD-10: K63.5 . 02 CPT . 445963 Performed at: 01 [facility] [address], [place], [place] [id number] MD León Salazar MD Phone: [phone] Performed at: 02 [facility] [address] [place], [place] [id number] MD Henrietta Ortega MD Phone: [phone]
[2020-05-16] MEDS: SODIUM CHLORIDE 0.9% 1,000 ML 70 ML IV (09:55)
[2020-05-16 09:56] VITALS: BP 161/88; PULSE 95; RESP 20; TEMP 35.8; O2SAT 93
--- NOTE | 2020-05-16 09:56 | PM.HP.1 ---
History of Present Illness History of Present Illness Date Patient Seen: 05/16/20 Time Patient Seen: 09:56 Chief complaint: SDC Narrative: The patient is a very pleasant 70-year-old male who presented for colonoscopy. His last colonoscopy was 8-10 years ago. He does have a family history, his father from colon cancer at the age of 54. He last took his Xarelto 3 days ago. Patient History Medical History Atrial fibrillation Cancer of skin of right ear COPD (chronic obstructive pulmonary disease) Hyperlipemia Hypertension Neuropathy of both feet Type 2 diabetes mellitus Urinary hesitancy Surgical History History of pneumothorax Family & Social History Family History Brother Diabetes mellitus Heart disease Father Cancer Colon cancer Mother Diabetes mellitus Sister Heart disease PML (progressive multifocal leukoencephalopathy) Social History: household members spouse Tobacco & Substance use: Smoking Status Former smoker alcohol intake frequency 0-2 drinks per day Substance Use Type does not use Meds Home Medications and Allergies Home Medications Medication Instructions Recorded Confirmed Type metformin 1,000 mg PO BID #180 06/10/12 05/16/20 Rx lisinopril 5 mg PO BEDTIME #0 10/14/16 05/16/20 History albuterol sulfate [Proventil HFA] 2 puff INH Q4HP PRN 01/29/20 05/16/20 History allopurinol 300 mg PO DAILY 01/29/20 05/16/20 History atorvastatin 20 mg PO DAILY 01/29/20 05/16/20 History budesonide-formoterol 2 puff INHALATION BID 01/29/20 05/16/20 History cholecalciferol (vitamin D3) 25 mcg PO DAILY 01/29/20 05/16/20 History cyanocobalamin (vitamin B-12) 1,000 mcg PO DAILY 01/29/20 05/16/20 History empagliflozin 10 mg PO QAM 01/29/20 05/16/20 History furosemide 40 mg PO QAM 01/29/20 05/16/20 History glimepiride 1 mg PO QAM 01/29/20 05/16/20 History lidocaine 2 patch TOPICAL DAILY PRN 01/29/20 05/16/20 History loratadine 10 mg PO DAILY 01/29/20 05/16/20 History metoprolol succinate 50 mg PO BEDTIME 01/29/20 05/16/20 History metoprolol succinate 100 mg PO QAM 01/29/20 05/16/20 History omeprazole 20 mg PO DAILY 01/29/20 05/16/20 History rivaroxaban 20 mg PO DAILY 01/29/20 05/16/20 History tiotropium bromide 2 inh INHALATION QAM 01/29/20 05/16/20 History guaifenesin [Mucus Relief ER] 1,200 mg PO BID #60 tab 02/02/20 05/16/20 Rx Allergies Allergy/AdvReac Type Severity Reaction Status Date / Time oxycodone Allergy Hallucinati Verified 02/01/20 14:43 ng Review of Systems Review of Systems ROS: Yes All systems reviewed with the patient and are negative except as otherwise documented Exam Const General: cooperative, healthy appearing, comfortable, well developed, well groomed and No acute distress Nutritional Appearance: well nourished and obese Orientation: alert, awake and oriented x3 HENMT Head: normocephalic and atraumatic Resp Effort & Inspection: normal respiratory effort and able to speak in complete sentences Auscultation: clear to auscultation bilaterally Cardio Rate: regular rate Rhythm: abnormal rhythm irregularly irregular Heart Sounds: S1 normal and S2 normal GI Palpation: soft Auscultation: normal bowel sounds Assessment & Plan Assessment & Plan narrative: 1. Family history colon cancer -father at age 54 2. Possible history of polyps, last colonoscopy 8-10 years ago -unfortunately we do not have that report available for review Colonoscopy today, further recommendations to follow
[2020-05-16] MEDS: fentaNYL 250 MCG/5 ML INJ IV (10:15)
[2020-05-16] MEDS: MIDAZOLAM 5 MG/5 ML VIAL IV (10:15)
[2020-05-16 10:42] VITALS: BP 132/64; PULSE 79; RESP 14; TEMP 36.2; O2SAT 91
[2020-05-16 10:47] VITALS: BP 154/84; PULSE 82; RESP 16; O2SAT 94
--- NOTE | 2020-05-16 10:47 | PM.OP.ENDO ---
Operative Date/Time/Diagnoses Date of procedure: 05/16/20 Time of procedure: 10:15 Procedure Notes Procedure in detail: Surgeon: Geni Johnson DO Procedure: Colonoscopy with polypectomy Preoperative diagnosis: 1. Surveillance colonoscopy, last colonoscopy 8-10 years 2. Family history colon cancer, father 54 Postoperative diagnosis: 1. 6 mm polyp in the sigmoid colon, removed with cold snare 2. Grade 1 internal hemorrhoids Medications: Conscious sedation using 6 mg IV of Midazolam and 150 mcg IV of Fentanyl Preanesthesia Assessment An H and P was performed/updated and the Px?s ASA class is 3. The procedure was discussed in detail with the patient. The potential risks and complications including infection, bleeding, missed lesions, perforation, need for surgery in case of perforation, prolonged hospital stay, and were explained. A brief question and answer period was allotted and once all questions were answered, informed consent was obtained. The patient was brought back to the procedure room and placed on standard monitoring. The patient?s vital signs were monitored continuously throughout the entire procedure. Prior to starting, a timeout was performed to confirm the patient?s identity, allergies, medications, and procedure. Procedure in detail The patient was placed in left lateral decubitus position and once adequate sedation was obtained a STEPHANIE was performed. The digital rectal examination did not reveal any palpable lesions. The tip of the colonoscope was placed in the anal canal and advanced without difficulty all the way to the cecum which was identified by the appendiceal orifice and the ileocecal valve. Careful examination of all muhammad of the colon was performed with irrigation of any residual stool. 6 mm polyp in the sigmoid colon removed with cold snare. This grade 1 internal hemorrhoids were noted on retroflexion. The patient tolerated the procedure well and will be brought back to the recovery area to be discharged once criteria are met. The prep was judged to be good/excellent and adequate to identify polyps less than 5 mm. The withdrawal time was 10min. The total physician intraservice time was 22min. Complications There were no complications and estimated blood loss was minimal. Recommendations: Resume previous diet Continue outPx medications, okay to resume Xarelto tomorrow Follow up pathology results Repeat colonoscopy after pathology results are reviewed An emergency contact number was given to the patient for any complications related to the procedure
[2020-05-16 10:52] VITALS: BP 154/83; PULSE 78; RESP 12; O2SAT 92
[2020-05-16 10:57] VITALS: BP 153/72; PULSE 77; RESP 12; O2SAT 92
[2020-05-16 11:03] VITALS: BP 160/72; PULSE 81; RESP 16; TEMP 36.2; O2SAT 92
== END 2020-05-16 11:17 | disposition home or self-care (01) ==
PROVIDERS: PCP Internal Medicine; Referring Provider Student in an Organized Health Care Education/Training Program; Visit Provider Student in an Organized Health Care Education/Training Program
PROC: 0DJD8ZZ Inspection of Lower Intestinal Tract, Via Natural or Artificial Opening Endoscopic (ICD-10-PCS; CPT 45378; principal; 2020-05-16 10:30)
DX: Z12.11 Encounter for screening for malignant neoplasm of colon (principal); Z80.0 Family history of malignant neoplasm of digestive organs; E11.40 Type 2 diabetes mellitus with diabetic neuropathy, unspecified; J44.9 Chronic obstructive pulmonary disease, unspecified; I10 Essential (primary) hypertension; E78.5 Hyperlipidemia, unspecified; I48.91 Unspecified atrial fibrillation; K64.0 First degree hemorrhoids; K63.5 Polyp of colon
CPT/HCPCS: 45385; J2250; J3010

== ENCOUNTER → 2020-10-11 09:58 | Outpatient (CLI) | payer MEDICARE, SELFPAY ==
[2020-02-01 18:15] VITALS: BMI 30.5
[2020-10-11] MEDS: COVID-19 VACC #1, MRNA(MOD) 100 MCG/0.5 ML VIAL IM (10:10)
== END ==
PROVIDERS: PCP Internal Medicine; Visit Provider Internal Medicine
DX: Z23 Encounter for immunization (principal)
CPT/HCPCS: 0011A; 91301

== ENCOUNTER → 2020-11-08 09:47 | Outpatient (CLI) | payer MEDICARE, SELFPAY ==
[2020-02-01 18:15] VITALS: BMI 30.5
[2020-11-08] MEDS: COVID-19 VACC #2, MRNA(MOD) 100 MCG/0.5 ML VIAL IM (09:54)
== END ==
PROVIDERS: PCP Internal Medicine; Visit Provider Internal Medicine
DX: Z23 Encounter for immunization (principal)
CPT/HCPCS: 0012A; 91301

== ENCOUNTER → 2021-05-28 07:56 | Outpatient (CLI) | payer OTHER, SELFPAY ==
[2020-02-01 18:15] VITALS: BMI 30.5
--- NOTE | 2021-05-28 | DI.ECHO.S_ITS ---
[facility]---------+ [facility] +---------+ : : [address] : [place] [address] : : : : [id number] : : : : Phone: [phone]+ Echocardiogram Report + + :Name: GRACIE COOMBS Study Date: 05/28/2021 Height: 71 in : :[facility] ReadingLocation: Weight: 213 lb : : Gender: Male BSA: 2.2 m2 : :: 1950 Age: 71 yrs BP: 143/93 mmHg: :Reason For Study: Syncope and collapse, pre op : : Performed By: Carlos Wilson : :Referring: UNSPECIFIED : + + Interpretation Summary This is a technically difficult study characterized by limited endocardial visualization and enhanced with Definity echocontrast. Normal LV size and wall thickness; There is distal septal hypokinesis and basal [id number]-zya-gxuradyn hypokinesis. EF is preserved and estimated at 50- 55%. Moderate RA enlargement; mildly dilated RV with normal RV function. No significant valvular abnormalities Compared to prior study 01/16/2016 afib is no longer present and LV is more dynamic. Procedure: A two-dimensional transthoracic echocardiogram with color flow and Doppler was performed. The study quality was technically difficult. Comparison is made with the echocardiogram of 01/16/2016. A contrast injection of Definity was performed to improve assessment of LV function. The patient was in normal sinus rhythm during the exam. The patient had occasional PVCs during the exam. Left Ventricle: The left ventricle is normal in size and wall thickness. Technically difficult 2 chamber. Left ventricular ejection fraction is estimated to be 55 +/- 5%. Right Ventricle: The right ventricle is mildly dilated. The right ventricular systolic function is normal. Atria: The left atrial size is normal. The right atrium is mild to moderately dilated. There is no Doppler evidence for an interatrial shunt. The atrial septum is aneurysmal. Mitral Valve: The mitral valve is normal. There is trace mitral regurgitation. Aortic Valve: The aortic valve is trileaflet. The aortic valve opens well. There is trace aortic regurgitation. Tricuspid Valve: The tricuspid valve is normal. There is a trace or physiologic amount of tricuspid regurgitation. Pulmonary artery pressures cannot be estimated because of the lack of a measurable TR jet velocity but the IVC suggests a CVP of around 3 mmHg. Pulmonic Valve: The pulmonic valve is normal in structure and function. Great Vessels: The aortic root is borderline dilated. The ascending aorta is normal in size. The aortic arch is normal in size. The IVC is of normal diameter and collapses greater than 50% with a sniff. This suggests a low right atrial pressure of 3 mm Hg. Pericardium/ Pleura There is no pericardial effusion. There is an anterior echo-free space consistent with a fat pad. There is no pleural effusion. MMode/2D Measurements & Calculations LVIDd: 5.5 cm LVOT diam: 2.2 cm LVIDs: 4.2 cm Ao root diam: 3.9 cm FS: 22.6 % asc Aorta Diam: 3.5 cm IVSd: 0.80 cm Ao Arch Diam (Prox Trans): 2.6 cm LVPWd: 0.84 cm LV gale. diameter/BSA (cm/m^2): 2.5 LV sys. diameter/BSA (cm/m^2): 2.0 LA A2 area: 19.8 cm2 RA long axis: 5.6 cm LA A4 area: 18.3 cm2 RA area: 22.0 cm2 LA length (vol): 6.1 cm RA vol: 74.2 ml LA vol: 50.1 ml RA : 34.3 ml/m2 LA vol index: 23.1 ml/m2 TAPSE: 1.8 cm Doppler Measurements & Calculations Ao V2 max: 108.2 cm/sec LVOT Max Tulio: 98.0 cm/sec Ao V2 mean: 82.8 cm/sec LV V1 max P.8 mmHg Ao max P.7 mmHg LV V1 VTI: 18.8 cm Ao mean P.9 mmHg CHAKA(I,D): 3.2 cm2 Ao V2 VTI: 23.3 cm CHAKA(V,D): 3.6 cm2 sev ratio: 0.81 CHAKA indexed to BSA (cm^2/m^2): 1.5 MV E max tulio: 90.3 cm/sec PA V2 max: 64.7 cm/sec MV A max tulio: 82.0 cm/sec PA V2 mean: 53.7 cm/sec MV E/A: 1.1 PA mean P.2 mmHg Med Peak E' Tulio: 7.7 cm/sec PA pr(Accel): 34.5 mmHg E/E' med: 11.8 Lat Peak E' Tulio: 7.9 cm/sec E/E' lat: 11.4 E/e' average: 11.6 MV dec time: 0.18 sec SV(LVOT): 74.3 ml Electronically signed by: My ruelas Deeth Physician:05/29/2021 09:21 AM
== END ==
PROVIDERS: PCP Internal Medicine; Referring Provider Internal Medicine; Visit Provider Internal Medicine
DX: R55 Syncope and collapse (principal)
CPT/HCPCS: 93306; Q9957

== ENCOUNTER 2023-03-27 22:14 | Emergency (ER) | payer OTHER, SELFPAY ==
[2020-02-01 18:15] VITALS: BMI 30.5
[2023-03-27] VITALS (7 sets, daily range): BP systolic 112–129; BP diastolic 64–78; PULSE 70–81; RESP 18–28; TEMP 35.7; O2SAT 94–96; BMI 29.9
--- NOTE | 2023-03-27 22:29 | DI.CT.S_ITS ---
PROCEDURE: CT CERVICAL SPINE WO CON INDICATIONS: Fall. TECHNIQUE: Noncontrast 3 mm thick sections acquired from the skull base to the T4 level. Sagittal and coronal reformats were then constructed. For radiation dose reduction, the following was used: automated exposure control, adjustment of mA and/or kV according to patient size. COMPARISON: [facility], CT, C-SPINE WITHOUT CONTRAST, 01/27/2010, 19:13. FINDINGS: Image quality: There is motion artifact. Bones: Trace anterolisthesis of C2 on C3, probably degenerative. No traumatic subluxation. Moderate overall degenerative changes. Vertebral body heights are well maintained. Soft tissues: There are vascular calcifications. No pathologic prevertebral soft tissue swelling. No apical pneumothorax. Partially seen left chest wall pulse generator. Partially seen right maxillary sinus partial opacification. IMPRESSION: No acute fracture or traumatic subluxation identified. If there is high concern for further derangement, consider MRI evaluation. Moderate degenerative changes are seen. Dictated by: Nathan Mosley M.D. on 03/27/2023 at 23:20 Approved by: Nathan Mosley M.D. on 03/27/2023 at 23:23
--- NOTE | 2023-03-27 22:29 | DI.RAD.S_ITS ---
PROCEDURE: XR CHEST 1V INDICATIONS: Fall. TECHNIQUE: One view of the chest was acquired. COMPARISON: [facility], , CHEST 1 VIEW, 01/04/2016, 12:42. [facility], , CHEST 1 VIEW, 01/03/2016, 11:10. FINDINGS: Surgical changes and devices: Left chest wall pulse generator with dual-chamber electrode leads in place. Lungs and pleura: Low lung volumes. No dense consolidation or pleural effusion. Mediastinum: Normal heart size. Bones and chest wall: Degenerative changes. IMPRESSION: No acute radiographic abnormality on this single view study with low lung volumes. Dictated by: Nathan Mosley M.D. on 03/27/2023 at 23:23 Approved by: Nathan Mosley M.D. on 03/27/2023 at 23:24
--- NOTE | 2023-03-27 22:29 | DI.CT.S_ITS ---
PROCEDURE: CT HEAD/BRAIN WO CON INDICATIONS: Fall, head laceration; on Eliquis. TECHNIQUE: Noncontrast 4.5 mm thick angled axial sections acquired from the foramen magnum to the vertex, with coronal and sagittal reformats. For radiation dose reduction, the following was used: automated exposure control, adjustment of mA and/or kV according to patient size. COMPARISON: [facility], CT, HEAD WITHOUT CONTRAST, 01/27/2010, 19:13. FINDINGS: Image quality: Good CSF spaces: Basal cisterns are patent. Lateral ventricles are symmetric. Volume: Vascular calcifications. Periventricular white matter disease is commonly seen with chronic microangiopathy. Volume loss is present. These findings are cpfq-[id number]-pbykytuz Brain: No intracranial hemorrhage. Estevez-white differentiation is grossly maintained. Craniofacial structures: Partially empty sella. Paranasal sinuses without significant opacification. IMPRESSION: No acute intracranial abnormality. Dictated by: Nathan Mosley M.D. on 03/27/2023 at 23:18 Approved by: Nathan Mosley M.D. on 03/27/2023 at 23:20
[2023-03-27 23:16] LABS: Add Manual Diff / Slide Review NO; Basophils Absolute Auto 0 /uL (0-100); Basophils Percent Auto 0.8 % (0-2); Eosinophils Absolute Auto 200 /uL (0-450); Eosinophils Percent Auto 3.2 % (2-4); Hematocrit 39.3 % (41-53); Hemoglobin 12.7 g/dL (13.5-17.5); Lymphocytes Absolute Auto 1600 /uL (1100-4500); Lymphocytes Percent Auto 34.3 % (25-40); Mean Corpuscular HGB Conc 32.4 % (30-36); Mean Corpuscular Hemoglobin 24.7 PG (26-34); Mean Corpuscular Volume 76.2 fL (80-100); Monocytes Absolute Auto 500 /uL (0-900); Monocytes Percent Auto 10.9 % (3-14); Neutrophils Absolute Auto 2400 /uL (1500-7000); Neutrophils Percent Auto 50.8 % (50-75); Platelet Count 165 X10^3/uL (150-400); Red Blood Cell Count 5.16 X10^6/uL (4.5-5.9); Red Cell Distribution Width 19.8 % (11.6-14.8); White Blood Cell Count 4.8 X10^3/uL (4.5-11.0)
[2023-03-27 23:27] LABS: Alanine Aminotransferase 24 IU/L (<50); Albumin Globulin Ratio 1.3 (1.0-2.8); Alkaline Phosphatase 79 U/L (38-126); Aspartate Aminotransferase 28 IU/L (17-59); BUN Creatinine Ratio 16.1 (6-22); Bilirubin Total 0.4 mg/dL (0.2-1.3); Blood Urea Nitrogen 15 mg/dL (9-20); Calcium 9.4 mg/dL (8.4-10.2); Carbon Dioxide 21 mmol/L (22-32); Chloride 102 mmol/L (98-107); Creatine Kinase 112 U/L (55-170); Estimated Glomerular Filt Rate > 60 mL/min (>60); Glucose 200 mg/dL (80-110); HEMOLYSIS < 15 (0-50); Potassium 3.7 mmol/L (3.4-5.1); Sodium 139 mmol/L (137-145)
[2023-03-27 23:38] LABS: Troponin I < 0.012 ng/mL (0.01-0.034)
--- NOTE | 2023-03-27 23:41 | ED.HEATRA ---
HPI - Head Injury General Chief complaint: Head Injury Stated complaint: Head lac, On thinners Time Seen by Provider: 03/27/23 22:29 Source: patient Mode of arrival: Ambulatory History of Present Illness HPI Narrative: Patient is a 73-year-old male with peripheral vascular disease, atrial fibrillation on Eliquis, diabetes presenting today after closed head injury, head laceration. He reports that he was out in his shop he stood up felt dizzy fell down and hit his head. He had a brief loss of consciousness it was witnessed by a friend. No nausea or vomiting no numbness tingling or weakness. He reports that he is frequently dizzy. No chest pain or palpitations. He says he was just down [facility] this week where he had a scan head to toe he is supposed to meet with vascular surgery. Reports that he is had some sort of bypass or stent to his lower extremities. He denies any abdominal pain. Related Data Home Medications Medication Instructions Recorded Confirmed lisinopril 5 mg tablet 5 mg PO BEDTIME ##0 10/14/16 05/16/20 albuterol sulfate 90 mcg/actuation 2 puff INH Q4HP PRN Shortness Of 01/29/20 05/16/20 aerosol inhaler (Proventil HFA) Breath allopurinol 300 mg tablet 300 mg PO DAILY 01/29/20 05/16/20 atorvastatin 20 mg tablet 20 mg PO DAILY 01/29/20 05/16/20 budesonide-formoterol HFA 160 2 puff inhalation BID 01/29/20 05/16/20 mcg-4.5 mcg/actuation aerosol inhaler cholecalciferol (vitamin D3) 25 25 mcg PO DAILY 01/29/20 05/16/20 mcg (1,000 unit) tablet cyanocobalamin (vitamin B-12) 1,000 mcg PO DAILY 01/29/20 05/16/20 1,000 mcg capsule empagliflozin 10 mg tablet 10 mg PO QAM 01/29/20 05/16/20 furosemide 40 mg tablet 40 mg PO QAM 01/29/20 05/16/20 glimepiride 4 mg tablet 1 mg PO QAM 01/29/20 05/16/20 lidocaine 5 % topical patch 2 patch topical DAILY PRN Pain 01/29/20 05/16/20 (Scale Score 1-3) loratadine 10 mg capsule 10 mg PO DAILY 01/29/20 05/16/20 metoprolol succinate 100 mg 50 mg PO BEDTIME 01/29/20 05/16/20 tablet,extended release 24 hr metoprolol succinate 100 mg 100 mg PO QAM 01/29/20 05/16/20 tablet,extended release 24 hr omeprazole 20 mg capsule,delayed 20 mg PO DAILY 01/29/20 05/16/20 release rivaroxaban 20 mg tablet 20 mg PO DAILY 01/29/20 05/16/20 tiotropium bromide 2.5 2 inh inhalation QAM 01/29/20 05/16/20 mcg/actuation mist for inhalation Previous Rx's Medication Instructions Recorded metformin 1,000 mg tablet 1,000 mg PO BID ##180 06/10/12 guaifenesin 600 mg tablet, 1,200 mg (2 x 600 mg) PO BID #60 02/02/20 extended release 12 hr (Mucus tabs Relief ER) Allergies Allergy/AdvReac Type Severity Reaction Status Date / Time oxycodone Allergy Hallucinati Verified 02/01/20 14:43 ng Review of Systems Review of Systems ROS Unobtainable: All systems reviewed & are unremarkable except as noted in HPI and below Patient History Medical History Neuropathy of both feet Atrial fibrillation Cancer of skin of right ear COPD (chronic obstructive pulmonary disease) Hyperlipemia Hypertension Urinary hesitancy Type 2 diabetes mellitus Surgical History History of pneumothorax Family History Brother Diabetes mellitus Heart disease Father Cancer Colon cancer Mother Diabetes mellitus Sister Heart disease PML (progressive multifocal leukoencephalopathy) Social History household members: spouse Smoking Status: Former smoker alcohol intake: current Smoking Status: Former smoker alcohol intake frequency: a few times a week Substance Use Type: does not use Exam Initial Vital Signs Initial Vital Signs: Vital Signs Pulse Rate 81 03/27/23 22:20 Respiratory Rate 24 03/27/23 22:20 Pulse Oximetry 95 03/27/23 22:20 GENERAL: Well-appearing, well-nourished and in no acute distress. HEENT: Head head laceration 2 cm without significant crepitations or depression,EOMI, pupils reactive, face symmetric, moist mucous membranes NECK: Supple no vertebral CARDIOVASCULAR: Regular rate and rhythm without murmurs, rubs or gallops. RESPIRATORY: Breath sounds equal bilaterally, no wheezes rales or rhonchi. ABDOMEN: Soft, nontender. Normoactive bowel sounds all 4 quadrants. No guarding or rebound. EXTREMITIES: Normal range of motion, no clubbing or edema. Neurovascularly intact NEUROLOGICAL: Alert and oriented x4.Normal gait and speech. Cranial nerves II through XII grossly intact. SKIN: Warm, dry, no laceration, no petechiae, no rashes or lesions. Procedures Laceration Repair Laceration 1: Site: scalp Size (cm): 2.5 Description: linear Depth: simple, single layer Local Anesthetic: lidocaine 2% and with epi Amount of anesthesia used (mL): 2 Pre-repair: wound explored, irrigated extensively and deep structures intact Skin layer closed with: samir (3) Scores GCS Meet coma scale eye opening: Spontaneous Meet coma scale verbal response: Orientated Meet coma scale motor response: Obey commands Meet coma scale total score: 15 Course Orders Ordered: ED Orders 03/27/23 22:29 CT cervical spine wo con Stat CT head/brain wo con Stat Chest [XR chest 1V] Stat 03/27/23 22:36 EKG-12 Lead Stat 03/27/23 23:00 CBC Auto Diff [Complete Blood Count AUTO DIFF] Stat CMP [Comprehensive Metabolic Panel] Stat Troponin & CK Cardiac Panel Stat Discontinued Medications Lidocaine/Epinephrine (Lidocaine 1% W/Epi) 1 ml SUBCUT NOW ONE Stop: 03/27/23 23:41 Last Admin: 03/28/23 00:14 Dose: Not Given Documented By: HARIS Lidocaine/Epinephrine (Lidocaine 2% W/Epi Inj) 20 ml INJ INTRA-OP ONE Stop: 03/28/23 00:03 Last Admin: 03/28/23 00:08 Dose: 20 ml Documented By: HARIS Vital Signs Vital signs: Vital Signs - 8 hr 03/27/23 22:20 03/27/23 22:21 03/27/23 22:21 Temperature Pulse Rate 81 79 Respiratory Rate 24 27 H Blood Pressure 129/78 Pulse Oximetry 95 96 Oxygen Delivery Method 03/27/23 22:23 03/27/23 22:30 03/27/23 22:30 Temperature 96.3 F L Pulse Rate 80 78 Respiratory Rate 18 28 H Blood Pressure 129/78 112/67 Pulse Oximetry 95 94 Oxygen Delivery Method Room Air 03/27/23 22:52 03/27/23 22:52 03/27/23 23:00 Temperature Pulse Rate 74 Respiratory Rate 19 Blood Pressure 128/72 121/67 Pulse Oximetry 94 Oxygen Delivery Method 03/27/23 23:00 03/27/23 23:30 03/27/23 23:30 Temperature Pulse Rate 77 70 Respiratory Rate 18 21 Blood Pressure 117/64 Pulse Oximetry 94 95 Oxygen Delivery Method 03/28/23 00:00 03/28/23 00:00 03/28/23 00:30 Temperature Pulse Rate 76 Respiratory Rate 16 Blood Pressure 114/70 122/74 Pulse Oximetry 97 Oxygen Delivery Method 03/28/23 00:30 03/28/23 00:39 Temperature 97.7 F Pulse Rate 73 Respiratory Rate 22 Blood Pressure Pulse Oximetry 94 Oxygen Delivery Method MDM - Head Injury Lab Data 03/27/23 23:00 03/27/23 23:00 Labs: Lab Results 03/27/23 Range/Units 23:00 WBC 4.8 (4.5-11.0) X10^3/uL RBC 5.16 (4.5-5.9) X10^6/uL Hgb 12.7 L (13.5-17.5) g/dL Hct 39.3 L (41-53) % MCV 76.2 L (80-100) fL MCH 24.7 L (26-34) PG MCHC 32.4 (30-36) % RDW 19.8 H (11.6-14.8) % Plt Count 165 (150-400) X10^3/uL Neut % (Auto) 50.8 (50-75) % Lymph % (Auto) 34.3 (25-40) % Stephenson % (Auto) 10.9 (3-14) % Eos % (Auto) 3.2 (2-4) % Baso % (Auto) 0.8 (0-2) % Neut # (Auto) 2400 (9607-3045) /uL Lymph # (Auto) 1600 (1945-7295) /uL Stephenson # (Auto) 500 (0-900) /uL Eos # (Auto) 200 (0-450) /uL Baso # (Auto) 0 (0-100) /uL Sodium 139 (137-145) mmol/L Potassium 3.7 (3.4-5.1) mmol/L Chloride 102 (98-107) mmol/L Carbon Dioxide 21 L (22-32) mmol/L BUN 15 (9-20) mg/dL Creatinine 0.93 (0.66-1.25) mg/dL Estimated GFR > 60 (>60) mL/min BUN/Creatinine Ratio 16.1 (6-22) Glucose 200 H (80-110) mg/dL Calcium 9.4 (8.4-10.2) mg/dL Total Bilirubin 0.4 (0.2-1.3) mg/dL AST 28 (17-59) IU/L ALT 24 (<50) IU/L Alkaline Phosphatase 79 (38-126) U/L Total Creatine Kinase 112 (55-170) U/L Troponin I < 0.012 (0.01-0.034) ng/mL Total Protein 7.0 (6.3-8.2) g/dL Albumin 4.0 (3.5-5.0) g/dL Globulin 3.0 (1.7-4.1) g/dL Albumin/Globulin Ratio 1.3 (1.0-2.8) Imaging Data CT scan - head: Radiologist's Impression: PROCEDURE: CT HEAD/BRAIN WO CON INDICATIONS: Fall, head laceration; on Eliquis. TECHNIQUE: Noncontrast 4.5 mm thick angled axial sections acquired from the foramen magnum to the vertex, with coronal and sagittal reformats. For radiation dose reduction, the following was used: automated exposure control, adjustment of mA and/or kV according to patient size. COMPARISON: [facility], CT, HEAD WITHOUT CONTRAST, 01/27/2010, 19:13. FINDINGS: Image quality: Good CSF spaces: Basal cisterns are patent. Lateral ventricles are symmetric. Volume: Vascular calcifications. Periventricular white matter disease is commonly seen with chronic microangiopathy. Volume loss is present. These findings are [id number] Brain: No intracranial hemorrhage. Estevez-white differentiation is grossly maintained. Craniofacial structures: Partially empty sella. Paranasal sinuses without significant opacification. IMPRESSION: No acute intracranial abnormality. Dictated by: Nathan Mosley M.D. on 03/27/2023 at 23:18 Chest x-ray: Radiologist's Impression: PROCEDURE: XR CHEST 1V INDICATIONS: Fall. TECHNIQUE: One view of the chest was acquired. COMPARISON: [facility], CR, CHEST 1 VIEW, 01/04/2016, 12:42. [facility], CR, CHEST 1 VIEW, 01/03/2016, 11:10. FINDINGS: Surgical changes and devices: Left chest wall pulse generator with dual-chamber electrode leads in place. Lungs and pleura: Low lung volumes. No dense consolidation or pleural effusion. Mediastinum: Normal heart size. Bones and chest wall: Degenerative changes. IMPRESSION: No acute radiographic abnormality on this single view study with low lung volumes. Dictated by: Nathan Mosley M.D. on 03/27/2023 at 23:23 CT - cervical spine: Radiologist's Impression: PROCEDURE: CT CERVICAL SPINE WO CON INDICATIONS: Fall. TECHNIQUE: Noncontrast 3 mm thick sections acquired from the skull base to the T4 level. Sagittal and coronal reformats were then constructed. For radiation dose reduction, the following was used: automated exposure control, adjustment of mA and/or kV according to patient size. COMPARISON: [facility], CT, C-SPINE WITHOUT CONTRAST, 01/27/2010, 19:13. FINDINGS: Image quality: There is motion artifact. Bones: Trace anterolisthesis of C2 on C3, probably degenerative. No traumatic subluxation. Moderate overall degenerative changes. Vertebral body heights are well maintained. Soft tissues: There are vascular calcifications. No pathologic prevertebral soft tissue swelling. No apical pneumothorax. Partially seen left chest wall pulse generator. Partially seen right maxillary sinus partial opacification. IMPRESSION: No acute fracture or traumatic subluxation identified. If there is high concern for further derangement, consider MRI evaluation. Moderate degenerative changes are seen. Dictated by: Nathan Mosley M.D. on 03/27/2023 at 23:20 ECG Data Interpretation: Atrial fibrillation rate [address] changes right bundle-branch block MDM Narrative Medical decision making narrative: Patient is a 73-year-old male presenting today with brief episode of dizziness and fall with closed head injury and laceration to posterior skull. It has been bleeding for quite a few hours. Imaging has been reviewed there is no intracranial hemorrhage or fracture. Laceration is easily repaired with lidocaine and epinephrine along with some samir bleeding is now controlled. Due to dizziness blood work and further evaluation was done. Blood work EKG have all been reviewed. Electrolytes CBC and troponin do not show any clinical significant abnormality. Patient reports that he was passing out quite a bit and then he got a pacemaker and has not had really any issue until today when he stood up maybe too quickly and then fell. At this time recommend outpatient follow-up. [facility] he has follow-up with him in a week or 2. CT angio from [facility] done on March 26 has been received and reviewed the CTA runoff no aneurysm or dissection no change in vascular disease your complete occlusion of right SFA and short segment occlusion of the left popliteal artery with distal reconstruction interval placement of by iliac stents which are patent. Discharge Plan Departure Patient Disposition: Home Clinical Impression: Near syncope, Closed head injury, Laceration of head Instructions: DI for Laceration Repair -- [place], DI for Closed Head Injury Activity Restrictions/Additional Instructions: *You have been diagnosed with closed head injury, head laceration *What to do: At this time you may bathe and wash hair. Keep area clean and dry with soap and water. May apply antibiotic ointment 1-2 times daily. Have samir removed in about 5-7 days by walk-in clinic PCP or ER. If still bleeding try and ice pack or applying pressure for 30-60 minutes if it continues to bleed excessively then you may return to the ER *Continue to take medications as directed Tylenol 1000 mg every 6 hours if needed for [id number] pain *Follow up with your primary care provider in 2-3 days or call [phone] *Return to ER if you should have increasing pain persistent bleeding, nausea vomiting or weakness or any new, worsening or concerning symptoms Prescriptions: No Action metformin 1,000 MG tablet 1,000 mg PO BID Qty: 180 3RF lisinopril 5 MG tablet 5 mg PO BEDTIME Qty: 0 furosemide 40 mg Tablet 40 mg PO QAM atorvastatin 20 mg Tablet 20 mg PO DAILY metoprolol succinate 100 mg Tablet Extended Release 24 Hr 100 mg PO QAM metoprolol succinate 100 mg Tablet Extended Release 24 Hr 50 mg PO BEDTIME glimepiride 4 mg Tablet 1 mg PO QAM lidocaine 5 % Adhesive Patch,Medicated 2 patch TOPICAL DAILY PRN (Reason: Pain (Scale Score 1-3)) omeprazole 20 mg Capsule,Delayed Release(Dr/Ec) 20 mg PO DAILY allopurinol 300 mg Tablet 300 mg PO DAILY cholecalciferol (vitamin D3) 25 mcg (1,000 unit) Tablet 25 mcg PO DAILY budesonide-formoterol 160-4.5 mcg/actuation Hfa Aerosol Inhaler 2 puff INHALATION BID loratadine 10 mg Capsule 10 mg PO DAILY rivaroxaban 20 mg Tablet 20 mg PO DAILY Rx Instructions: w/ meal tiotropium bromide 2.5 mcg/actuation Mist 2 inh INHALATION QAM empagliflozin 10 mg Tablet 10 mg PO QAM cyanocobalamin (vitamin B-12) 1,000 mcg Capsule 1,000 mcg PO DAILY albuterol sulfate [Proventil HFA] 90 MCG/PUFF HFA aerosol inhaler 2 puff INH Q4HP PRN (Reason: Shortness Of Breath) guaifenesin [Mucus Relief ER] 600 mg Tablet Extended Release 12hr 1,200 mg PO BID Qty: 60 0RF Referrals: Adrienne Gaviria MD [Primary Care Provider] - Stand Alone Forms: Patient Portal/API
[2023-03-28] VITALS: BP 114/70; PULSE 76; RESP 16; O2SAT 97
[2023-03-28] MEDS: LIDOCAINE 2% W/EPI INJ 20 ML INJ (00:08)
[2023-03-28 00:30] VITALS: BP 122/74; PULSE 73; RESP 22; O2SAT 94
[2023-03-28 00:39] VITALS: TEMP 36.5
== END 2023-03-28 00:40 | disposition home or self-care (01) ==
PROVIDERS: Emergency Provider Emergency Medicine; PCP Internal Medicine
DX: S01.01XA Laceration without foreign body of scalp, initial encounter (principal); S09.90XA Unspecified injury of head, initial encounter; R55 Syncope and collapse; Z79.01 Long term (current) use of anticoagulants
CPT/HCPCS: 12001; 36415; 70450; 71045; 72125; 80053; 82550; 84484; 85025; 93005; 99283; 99284

== ENCOUNTER → 2025-03-21 09:49 | Outpatient (CLI) | payer OTHER, SELFPAY ==
[2023-04-29 09:37] VITALS: BMI 30.5
--- NOTE | 2025-03-21 09:51 | DI.NM.S_ITS ---
PROCEDURE: NM BONE SCAN WHOLE BODY RADIOPHARMACEUTICAL: 21.4 mCi Tc-99m MDP IV. INDICATIONS: CHEST WALL,LUMBAR,RT THIGH PAIN TECHNIQUE: Delayed whole-body scintigrams were obtained approximately 3-4 hours after intravenous injection of radiotracer. Anterior and posterior views were acquired from vertex to feet. COMPARISON: CT, CT HEAD/BRAIN WO CON, 03/27/2023, 22:32. FINDINGS: Physiologic uptake is noted within the kidneys and bladder. Increased uptake is present at the level of L5 into a lesser degree scattered areas within the cervical, thoracic and lumbar spine. Punctate area of uptake is identified overlying the superior aspect of the right orbit. No abnormality on prior CT in 2022. Increased uptake within the shoulders, knees and small bones of the feet consistent with degenerative change. IMPRESSION: Multifocal areas of increased uptake within the spine overall nonspecific. These are suspected to represent degenerative change. However if there is presence of known malignancy, metastatic disease can be indistinguishable. Small focus of uptake overlying the right orbit overall nonspecific. Orbital x- ray is recommended for correlation. Dictated by: Shagufta Rao M.D. on 03/21/2025 at 18:06 Approved by: Shagufta Rao M.D. on 03/21/2025 at 18:08
== END ==
PROVIDERS: PCP Family Medicine; Referring Provider Family Medicine; Visit Provider Family Medicine
DX: M79.605 Pain in left leg (principal)
CPT/HCPCS: 78306; A9503